=== PATIENT | male | born 1970 | race American Indian/Alaskan Native ===

== ENCOUNTER 2016-08-03 12:25 | Emergency (ER) | payer OTHER ==
[2016-08-03] MEDS ORDERED: MOTRIN PO ONE (16:43)
--- NOTE | 2016-08-03 16:44 | Emergency Department Report ---
ED General Adult HPI - General Chief complaint: Extremity Injury, Lower Stated complaint: LFT KNEE PAIN Source: patient Mode of arrival: Ambulatory Limitations: No Limitations - History of Present Illness Initial comments: 46-year-old male comes in for complaint of left knee pain that gone on for a while he reports he has a history of arthritis of the knee but he feels like the pain is getting worse. He also complains of the rash since all over his body for one month he reports that he's been using cocoa butter without any resolution. The rash is pruritic. In all over. - Related Data Previous Rx's Medication Instructions Recorded Last Taken Type Docusate Sodium [Colace] 100 mg PO BID PRN #60 capsule 02/20/16 Unknown Rx Polyethylene Glycol 3350 [Miralax 17 gm PO QDAY #30 packet 02/20/16 Unknown Rx 3350] methylPREDNISolone [Medrol] 4 mg PO QDAY #21 tab.ds.pk 08/03/16 Unknown Rx Allergies Allergy/AdvReac Type Severity Reaction Status Date / Time No Known Allergies Allergy Verified 10/02/15 08:39 ED Review of Systems ROS: Stated complaint: LFT KNEE PAIN Other details as noted in HPI Constitutional: other (very emaciated). denies: chills, fever Musculoskeletal: arthralgia Skin: rash, pruritus ED Past Medical Hx - Past Medical History Hx Hypertension: No Hx Heart Attack/AMI: No Hx Liver Disease: No Hx Renal Disease: No Hx Headaches / Migraines: Yes Hx Seizures: No Hx Asthma: Yes Hx COPD: No Additional medical history: Hemorrhoids - Surgical History Hx Pacemaker: No Hx Internal Defibrillator: No Additional Surgical History: deepti arthroscopy knee surgery - Social History Smoking Status: Current Every Day Smoker Substance Use Type: Alcohol - Medications Home Medications: Home Medications Medication Instructions Recorded Confirmed Last Taken Type Docusate Sodium [Colace] 100 mg PO BID PRN #60 capsule 02/20/16 Unknown Rx Polyethylene Glycol 3350 [Miralax 17 gm PO QDAY #30 packet 02/20/16 Unknown Rx 3350] methylPREDNISolone [Medrol] 4 mg PO QDAY #21 tab.ds.pk 08/03/16 Unknown Rx ED Physical Exam - General Limitations: No Limitations General appearance: alert, in no apparent distress - Expanded Lower Extremity Exam Left Knee exam: Present: full ROM, pain/laxity with valgus, pain/laxity with varus. Absent: swelling, deformity, crepidus, dislocation, erythema, effusion, posterior draw sign Neuro vascular tendon exam: Present: no vascular compromise Gait: Positive: observed and normal - Skin Skin exam: Present: warm, dry, intact, rash - Expanded Skin Exam Expanded Distribution of rash: generalized, chest, back, RLE, LLE Description of rash: Present: macular. Absent: tenderness, erythematous ED Course Vital Signs 08/03/16 08/03/16 13:23 16:53 Temperature 98.5 F 97.9 F Pulse Rate 87 69 Respiratory 18 12 Rate Blood Pressure 120/68 Blood Pressure 113/90 [Left] O2 Sat by Pulse 100 102 H Oximetry ED Medical Decision Making - Medical Decision Making Patient's been evaluated by this provider in fast track. He has a rash that we need to be evaluated by personnel and payroll technician. Recommended taking Benadryl for the itching using either Vaseline or Eucerin to the skin for moisturize. Left knee pain chronic we will try given the patient in ibuprofen 800 now and will discharge him on ibuprofen for him to follow up with the primary care provider that we referred him to. Critical care attestation.: If time is entered above; I have spent that time in minutes in the direct care of this critically ill patient, excluding procedure time. ED Disposition Clinical Impression: Rash of entire body Disposition: DISCHARGED TO HOME OR SELFCARE Is pt being admited?: No Does the pt Need Aspirin: No Condition: Stable Instructions: Acute Rash (ED), Knee Pain (ED) Additional Instructions: Very importantly to follow up with her primary care provider as well as a personnel and payroll technician. We will also refer you to orthopedics to evaluate her knee again. Prescriptions: methylPREDNISolone [Medrol] 4 mg PO QDAY #21 tab.ds.pk Referrals: PRIMARY CAREMD [Primary Care Provider] - 3-5 Days [facility] [Outside] - 3-5 Days [facility] [Outside] - 3-5 Days ILYA SIMMS MD [Staff Physician] - 3-5 Days ILDA STEWARD MD [Staff Physician] - 3-5 Days Forms: Work/School Release Form(ED)
[2016-08-03 16:54] VITALS: BP 113/90
== END 2016-08-03 18:58 | disposition home or self-care (01) ==
LOC: ED 12:25
DX: R21 Rash and other nonspecific skin eruption (principal); M25.562 Pain in left knee; J45.909 Unspecified asthma, uncomplicated; G43.909 Migraine, unspecified, not intractable, without status migrainosus; F17.200 Nicotine dependence, unspecified, uncomplicated
CPT/HCPCS: 99282

== ENCOUNTER 2017-03-20 09:20 | Emergency (ER) | payer SELFPAY ==
[2017-03-20] MEDS ORDERED: MOTRIN PO ONE (12:17)
[2017-03-20] MEDS ORDERED: NORCO 5/325 PO ONE (12:18)
--- NOTE | 2017-03-20 12:21 | Emergency Department Report ---
ED Back Pain/Injury HPI - General Chief Complaint: Back Pain/Injury Stated Complaint: BACK PAIN Time Seen by Provider: 03/20/17 12:16 Source: patient Limitations: No Limitations - History of Present Illness Initial Comments: 47-year-old male past medical history smoker, arthritis presents with complaint of neck pain rad to arm and left lower back pain radiating down through buttock and into left leg. Denies any falls denies any direct trauma denies dysuria denies hematuria denies abdominal pain denies fever or chills. States it is worse when he changes positions worse when bending over. Moving all 4 extremities. Denies loss of bladder or bowel control. And oriented 3, ambulatory without assistance. MD Complaint: back pain -: Last night Similar Symptoms Previously: Yes Place: home, street Radiation: left leg Severity: moderate Severity scale (0 -10): 6 Quality: sharp Consistency: intermittent Improves With: immobilization Worsens With: movement, walking Context: while lifting, turning/twisting, bending Associated Symptoms: denies other symptoms - Related Data Previous Rx's Medication Instructions Recorded Last Taken Type Docusate Sodium [Colace] 100 mg PO BID PRN #60 capsule 02/20/16 Unknown Rx Polyethylene Glycol 3350 [Miralax 17 gm PO QDAY #30 packet 02/20/16 Unknown Rx 3350] methylPREDNISolone [Medrol] 4 mg PO QDAY #21 tab.ds.pk 08/03/16 Unknown Rx Cyclobenzaprine [Flexeril] 10 mg PO TID PRN #12 tablet 03/20/17 Unknown Rx Naproxen [Naprosyn TAB] 500 mg PO BID PRN #25 tablet 03/20/17 Unknown Rx Allergies Allergy/AdvReac Type Severity Reaction Status Date / Time No Known Allergies Allergy Verified 10/02/15 08:39 ED Review of Systems ROS: Stated complaint: BACK PAIN Other details as noted in HPI Constitutional: denies: chills, fever Eyes: denies: eye pain, eye discharge, vision change ENT: denies: ear pain, throat pain Respiratory: denies: cough, shortness of breath, wheezing Cardiovascular: denies: chest pain, palpitations Endocrine: no symptoms reported Gastrointestinal: denies: abdominal pain, nausea, diarrhea Genitourinary: denies: urgency, dysuria Musculoskeletal: as per HPI, back pain. denies: joint swelling, arthralgia Skin: denies: rash, lesions Neurological: denies: headache, weakness, paresthesias Psychiatric: denies: anxiety, depression Hematological/Lymphatic: denies: easy bleeding, easy bruising ED Past Medical Hx - Past Medical History Previous Medical History?: Yes Hx Hypertension: No Hx Heart Attack/AMI: No Hx Liver Disease: No Hx Renal Disease: No Hx Headaches / Migraines: Yes Hx Seizures: No Hx Asthma: Yes Hx COPD: No Additional medical history: Hemorrhoids - Surgical History Hx Pacemaker: No Hx Internal Defibrillator: No Additional Surgical History: deepti arthroscopy knee surgery - Social History Smoking Status: Current Every Day Smoker Substance Use Type: Alcohol - Medications Home Medications: Home Medications Medication Instructions Recorded Confirmed Last Taken Type Docusate Sodium [Colace] 100 mg PO BID PRN #60 capsule 02/20/16 Unknown Rx Polyethylene Glycol 3350 [Miralax 17 gm PO QDAY #30 packet 02/20/16 Unknown Rx 3350] methylPREDNISolone [Medrol] 4 mg PO QDAY #21 tab.ds.pk 08/03/16 Unknown Rx Cyclobenzaprine [Flexeril] 10 mg PO TID PRN #12 tablet 03/20/17 Unknown Rx Naproxen [Naprosyn TAB] 500 mg PO BID PRN #25 tablet 03/20/17 Unknown Rx ED Physical Exam - General Limitations: No Limitations General appearance: alert, in no apparent distress - Head Head exam: Present: atraumatic, normocephalic - Eye Eye exam: Present: normal appearance, PERRL, EOMI - ENT ENT exam: Present: mucous membranes moist - Neck Neck exam: Present: normal inspection, full ROM (neck flexion and extension intact, lateral rotation, lateral flexion) - Respiratory Respiratory exam: Present: normal lung sounds bilaterally. Absent: respiratory distress - Cardiovascular Cardiovascular Exam: Present: regular rate, normal rhythm. Absent: systolic murmur, diastolic murmur, rubs, gallop - GI/Abdominal GI/Abdominal exam: Present: soft, normal bowel sounds - Rectal Rectal exam: Present: deferred - Extremities Exam Extremities exam: Present: normal inspection - Back Exam Back exam: Present: normal inspection - Expanded Back Exam Expanded Back exam: Present: normal rectal tone Back exam: Sciatic Notch Tenderness: Left, Positive Straight Leg Raise: Left ( at 20 degrees left leg on SLR test) - Neurological Exam Neurological exam: Present: alert, oriented X3, CN II-XII intact, normal gait - Psychiatric Psychiatric exam: Present: normal affect, normal mood - Skin Skin exam: Present: warm, dry, intact, normal color. Absent: rash ED Course Vital Signs 03/20/17 03/20/17 03/20/17 09:26 12:26 14:06 Temperature 98 F 99.2 F Pulse Rate 83 68 Respiratory 16 16 18 Rate Blood Pressure 114/84 Blood Pressure 139/86 [Left] O2 Sat by Pulse 100 100 Oximetry ED Medical Decision Making - Medical Decision Making a/p: Sciatica, lower back pain, chronic radiculopathy 1- will provide symptomatic relief with trial of NSAIDS 2- will refer to PMD as pt does not have one and to ortho for f/u and outpt imaging, none needed at this time since pain is atraumatic, no neurovascular deficits on PE, no saddle paraesthesias, no bladder overflow, no bowel incontience, no clinical signs of cauda equina syndrome. Pt denies any fever, chill, dysruia or IV drug use. Pain likely from chronic degenerative spinal disease. 3- xray shows Critical care attestation.: If time is entered above; I have spent that time in minutes in the direct care of this critically ill patient, excluding procedure time. ED Disposition Clinical Impression: Sciatica of left side, Chronic neck pain Disposition: TO HOME OR SELFCARE Is pt being admited?: No Does the pt Need Aspirin: No Condition: Stable Instructions: Sciatica (ED), Piriformis Syndrome (ED) Prescriptions: Cyclobenzaprine [Flexeril] 10 mg PO TID PRN #12 tablet PRN Reason: Muscle Spasm Naproxen [Naprosyn TAB] 500 mg PO BID PRN #25 tablet PRN Reason: Pain Referrals: SANDIP COLLINS MD [Staff Physician] - 3-5 Days HARPAL SAINI MD [Staff Physician] - 3-5 Days [facility] [Provider Group] - 3-[address] [facility] [Provider Group] - 3-5 Days Forms: Work/School Release Form(ED) Time of Disposition: 13:49
--- NOTE | 2017-03-20 14:00 | XRay Report ---
CERVICAL SPINE SERIES THREE VIEWS: 03/20/17 09:20:00 CLINICAL: Pain. FINDINGS: Normal vertebral body alignment through T2. Moderate degenerative change at C5-6 and C6-7 with decreased height and increased density of the C5 vertebral bodies. Anterior osteophytes at C5-6 and C6-7 with larger osteophytes at C6-7. Vacuum disc phenomenon at C6-7. Mild facet joint sclerosis at C7-T1. The rest of the facet joints are normal. Normal odontoid and C1. Normal airway and soft tissues. IMPRESSION: Moderate degenerative change at C5-6 and C6-7.
[2017-03-20 14:07] VITALS: BP 139/86
== END 2017-03-20 14:06 | disposition home or self-care (01) ==
LOC: ED 09:20
DX: M54.32 Sciatica, left side (principal); M54.2 Cervicalgia; G89.29 Other chronic pain; G43.909 Migraine, unspecified, not intractable, without status migrainosus; J45.909 Unspecified asthma, uncomplicated; F17.200 Nicotine dependence, unspecified, uncomplicated
CPT/HCPCS: 72040

== ENCOUNTER 2017-08-12 11:20 | Inpatient (IN) | payer SELFPAY ==
[2017-08-12 12:31] LABS: Eosinophils % (Auto) TNR % (0.0-4.3); Monocytes % (Auto) TNR % (0.0-7.3)
[2017-08-12 12:32] LABS: Basophils # (Auto) TNR K/mm3 (0.0-0.1); Basophils % (Auto) TNR % (0.0-1.8); Eosinophils # (Auto) TNR K/mm3 (0.0-0.4); Hematocrit TNR % (35.5-45.6); Hemoglobin TNR gm/dl (11.8-15.2); Lymphocytes # (Auto) TNR K/mm3 (1.2-5.4); Lymphocytes % (Auto) TNR % (13.4-35.0); Mean Corpuscular HGB Conc TNR % (32-34); Mean Corpuscular Hemoglobin TNR pg (28-32); Mean Corpuscular Volume TNR fl (84-94); Mean Platelet Volume TNR fl (6-12); Monocytes # (Auto) TNR K/mm3 (0.0-0.8); Platelet Count TNR K/mm3 (140-440); Red Blood Count TNR M/mm3 (3.65-5.03); Red Cell Distribution Width TNR % (13.2-15.2)
[2017-08-12 12:33] LABS: INR 1.25 (0.87-1.13)
[2017-08-12 12:43] LABS: BUN/Creatinine Ratio 14; Blood Urea Nitrogen 13 mg/dL (9-20); Calcium 8.4 mg/dL (8.4-10.2); Hemolysis Index 0
--- NOTE | 2017-08-12 12:45 | Emergency Department Report ---
HPI - General Chief Complaint: Arrhythmia/Palpitations Time Seen by Provider: 08/12/17 12:08 - HPI HPI: This is a 47 year-old male presents to the emergency department by EMS from work with a complaint of a fast heart rate and palpitations. Patient started feeling dizzy and seeing spots just as he noticed his heart was racing. He also started feeling some left shoulder pain and paresthesias and/or tingling in the left hand. EMS was called and the patient was found to have a heart rate of 165. Apparently he converted back down to 88 and then back up to 130 while in route. There is an EKG that appears consistent with sinus tachycardia at 144 bpm from EMS. At the current time the patient's heart rate is within the normal range and all of his previous symptoms have resolved. He said that this occurred to him one time prior about a week ago. He has a history of asthma, internal hemorrhoids and migraine headaches. He does not have a primary care doctor. He is a tobacco smoker but denies any illicit drug use or alcohol abuse. ED Past Medical Hx - Past Medical History Hx Hypertension: No Hx Heart Attack/AMI: No Hx Liver Disease: No Hx Renal Disease: No Hx Headaches / Migraines: Yes Hx Seizures: No Hx Asthma: Yes Hx COPD: No Additional medical history: Hemorrhoids - Surgical History Hx Pacemaker: No Hx Internal Defibrillator: No Additional Surgical History: deepti arthroscopy knee surgery - Social History Smoking Status: Current Every Day Smoker Substance Use Type: None - Medications Home Medications: Home Medications Medication Instructions Recorded Confirmed Last Taken Type No Known Home Medications [No 08/12/17 08/12/17 Unknown History Reported Home Medications] ED Review of Systems ROS: Stated complaint: SVT Other details as noted in HPI Comment: All other systems reviewed and negative Constitutional: denies: chills, fever Eyes: denies: eye pain, eye discharge, vision change Respiratory: denies: cough, shortness of breath, wheezing Cardiovascular: palpitations. denies: chest pain Gastrointestinal: denies: abdominal pain, nausea, diarrhea Genitourinary: denies: urgency, dysuria Musculoskeletal: arthralgia. denies: back pain Skin: denies: rash, lesions Neurological: paresthesias. denies: headache, numbness Physical Exam - Physical Exam Vital Signs: Vital Signs 08/12/17 08/12/17 08/12/17 11:48 11:56 12:33 Temperature 98.1 F 98.1 F Pulse Rate 75 75 Respiratory 20 20 Rate Blood Pressure 128/75 O2 Sat by Pulse 100 100 100 Oximetry Physical Exam: GENERAL: The patient is well-developed well-nourished. HENT: Normocephalic. Atraumatic. Patient has moist mucous membranes. EYES: Extraocular motions are intact. Pupils equal reactive to light bilaterally. NECK: Supple. Trachea is midline. CHEST/LUNGS: Clear to auscultation. There is no respiratory distress noted. HEART/CARDIOVASCULAR: Regular. There is no tachycardia. There is no murmur. ABDOMEN: Abdomen is soft, nontender. Patient has normal bowel sounds. There is no abdominal distention. SKIN: Skin is warm and dry. NEURO: The patient is awake, alert, and oriented. The patient is cooperative. The patient has no focal neurologic deficits. The patient has normal speech. MUSCULOSKELETAL: There is no tenderness or deformity. There is no limitation range of motion. There is no evidence of acute injury. RECTAL: No hemorrhoids or lesions seen externally. No gross blood. Stool negative for guaiac testing at this time. ED Course Vital Signs 08/12/17 08/12/17 08/12/17 11:48 11:56 12:33 Temperature 98.1 F 98.1 F Pulse Rate 75 75 Respiratory 20 20 Rate Blood Pressure 128/75 O2 Sat by Pulse 100 100 100 Oximetry ED Medical Decision Making - Lab Data Result diagrams: 08/12/17 12:41 08/12/17 12:07 - EKG Data -: EKG Interpreted by Dc EKG shows normal: sinus rhythm, axis (left axis deviation), intervals, QRS complexes (left anterior fascicular block and incomplete right bundle branch block, Q waves to the septal leads), ST-T waves Rate: normal - EKG Data When compared to previous EKG there are: no significant change Interpretation: unchanged when compared t (02/2016) - Radiology Data Radiology results: image reviewed interpreted by me: Chest x-ray does not show any acute process. There are no pleural effusions, obvious pneumonia and there is no pneumothorax. - Medical Decision Making Patient presents with some transient tachycardia episodes as well as some symptoms of palpitations, paresthesias of the hand and dizziness. It appears to be secondary to his extreme microcytic anemia causing symptomatic anemia. His vital signs were stable throughout ED course thus far. A type and screen has been drawn and the patient will have 3 units of packed red blood cells to start and will be admitted to the hospital for further evaluation and treatment. He has been accepted for admission by the hospitalist, Dr. Colón. - Differential Diagnosis GI bleed, iron deficiency, symptomatic anemia, SVT, [place] Critical Care Time: No Critical care attestation.: If time is entered above; I have spent that time in minutes in the direct care of this critically ill patient, excluding procedure time. ED Disposition Clinical Impression: Symptomatic anemia, Iron deficiency, Palpitations Disposition: OP ADMIT IP TO THIS HOSP Is pt being admited?: Yes Condition: Stable Time of Disposition: 14:01
[2017-08-12 13:04] LABS: Red Blood Count 2.75 M/mm3 (3.65-5.03)
[2017-08-12 13:11] LABS: Mean Corpuscular HGB Conc 26 % (32-34); Mean Corpuscular Hemoglobin 12 pg (28-32); Red Cell Distribution Width 24.4 % (13.2-15.2)
[2017-08-12 13:12] LABS: Platelet Count 136 K/mm3 (140-440)
[2017-08-12 13:13] LABS: Hematocrit 13.2 % (35.5-45.6); Hemoglobin 3.4 gm/dl (11.8-15.2)
[2017-08-12] MEDS ORDERED: NACL 0.9% 500 ML 500 ML IV ONE (13:27)
[2017-08-12 13:43] LABS: Anisocytosis 2+; Band Neutrophils # (Manual) 0.1 K/mm3; Basophils % (Manual) 0 % (0.0-1.8); Eosinophils % (Manual) 0 % (0.0-4.3); Hypochromasia 3+; Total Cells Counted 100
[2017-08-12 13:44] LABS: Mean Corpuscular Volume < 50 fl (84-94); Platelet Estimate Consistent w Auto; Schistocytes 1+
--- NOTE | 2017-08-12 14:24 | XRay Report ---
PA and lateral chest: Palpitations. The lungs are clear and well inflated. No hilar or mediastinal adenopathy identified. Normal heart size and no vascular congestion. Healed fractured ribs in lateral left mid chest. No interval change when compared to prior exam in February 2016. Impression: No acute finding.
[2017-08-12] MEDS ORDERED: NACL 0.9% 500 ML 500 ML ONE (16:05)
--- NOTE | 2017-08-12 22:53 | Event Note ---
Date: 08/12/17 See dictated H/p in reports Acute Blood loss anemia Int Hemorrhoids
[2017-08-13] MEDS ORDERED: ZOFRAN IV PRN (01:33)
[2017-08-13] MEDS ORDERED: PERCOCET 5/325 PO PRN (01:33)
[2017-08-13] MEDS ORDERED: MORPHINE IV PRN (01:33)
[2017-08-13] MEDS ORDERED: DULCOLAX PR PRN (01:33)
[2017-08-13] MEDS ORDERED: MILK OF MAGNESIA PO PRN (01:33)
[2017-08-13] MEDS ORDERED: PEPCID IV SCH (02:00)
[2017-08-13] MEDS: PROTONIX IV SCH ×3 (02:17→22:09)
[2017-08-13 02:44] LABS: Hematocrit 21.1 % (35.5-45.6); Hemoglobin 6.1 gm/dl (11.8-15.2); Mean Corpuscular HGB Conc 29 % (32-34); Red Blood Count 3.54 M/mm3 (3.65-5.03)
[2017-08-13 02:53] LABS: Mean Corpuscular Hemoglobin 17 pg (28-32); Mean Corpuscular Volume 60 fl (84-94); Platelet Count 113 K/mm3 (140-440)
[2017-08-13 02:55] LABS: Red Cell Distribution Width > 40.0 % (13.2-15.2)
[2017-08-13 03:12] LABS: Alanine Aminotransferase 7 units/L (7-56); Albumin 3.6 g/dL (3.9-5); BUN/Creatinine Ratio 13; Blood Urea Nitrogen 9 mg/dL (9-20); Hemolysis Index 0
--- NOTE | 2017-08-13 03:58 | History and Physical Report ---
CHIEF COMPLAINT: Lower GI bleed secondary to hemorrhoids for 1 week. HISTORY OF PRESENT ILLNESS: A 47-year-old -Iranian male with a history of asthma, migraine headaches and internal hemorrhoids, comes in for rectal bleed for 1 week, off and on, moderate amount of bleeding. Also the patient has been feeling tired and weak, having palpitations. No fevers or chills. ( ) shortness of breath present. Also palpitations present. Otherwise, normal. PAST MEDICAL HISTORY: Significant for stents, history of bilateral arthroscopic knee surgery. SOCIAL HISTORY: Smokes about half a pack a day. FAMILY HISTORY: Significant for ( ). REVIEW OF SYSTEMS: ( ). CARDIOVASCULAR AND RESPIRATORY: Some shortness of breath present. No weakness, no wheezing. No chest pain. GI: No nausea, no vomiting. Rectal bleeding present. Off and on for last 1 week, copious amount. GENITOURINARY: No dysuria, no ( ) flank pain, frequency. SKIN: No rashes. CENTRAL NERVOUS SYSTEM: No syncope or seizures. PHYSICAL EXAMINATION: VITAL SIGNS: Temperature 98.1, pulse 75, blood pressure 128/75. HEENT: Unremarkable. Pupils equal and reactive. Posterior pharynx is normal. NECK: Supple, no lymphadenopathy, no thyromegaly. LUNGS: Clear to auscultation and percussion. CARDIOVASCULAR: S1, S2 heard. Apical impulse in the left fifth intercostal space and midclavicular line. ABDOMEN: Soft and benign. RECTAL: Positive for michaela blood in the ( ) EXTREMITIES: Good pedal pulses. LABORATORY DATA: Significant for ( ) and hematocrit of 13.2, white blood cells 3.7. Electrolytes are normal. INR is 1.25. Chest x-ray, no acute findings. ASSESSMENT AND PLAN: 1. Acute blood loss anemia. The patient to be transfused 3 units. 2. Gastritis. Continue Protonix. 3. Internal hemorrhoids. The patient to get GI consult and get colonoscopy again. The patient was told by ( ) that he has internal hemorrhoids that ( ). 4. DVT prophylaxis, only SCDs. JOB# [id number] NATE/GARY
[2017-08-13 06:06] LABS: Anisocytosis 3+; Band Neutrophils # (Manual) 0.1 K/mm3; Basophils % (Manual) 0 % (0.0-1.8); Total Cells Counted 100
[2017-08-13 06:07] LABS: Hypochromasia 3+; Schistocytes Few
[2017-08-13 06:08] LABS: Platelet Estimate Consistent w Auto
--- NOTE | 2017-08-13 09:11 | Progress Note ---
Assessment and Plan Assessment and plan: 47 Year old male admitted symptomatic anemia via EMS, found in the ED to have a hgb of 3. Patient also was noted to be complaining of palpitations and rapid HR , dizziness and parasthesia on the left side enroute to the hospital with top hr at 165. Sinus tachycardia per documentation. On discussion with the patient. He takes Tylenol dose chronically for more than a month now Symptomatic with profound Severe Anemia GI bleed ?Hemorroidal Pancytopenia(Anemia, thrombocytopenia, leukopenia) Sinus Tachycardia Hypercoagulable state Tobacco use disorder Plan * Continue supportive care * S/P 3 UNITS PRBC, Monitor H/H * Transfuse PRN * 15 MINS TOBACCO CESSATION COUNSELLING * Avoid Anticoagulation medications * Nicotin patch if needed. * Discussed with patient the need to treat tobacco and also creates Goody powder use. 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 * PPI BID History Interval history: Patient Seen and examined this morning in no acute distress. Reports that he was lost to follow-up due to insurance reasons. Any alcohol use. No other adverse events reported by nursing staff no other michaela bleeding noted. He reports last blood in stool was about a month ago Hospitalist Physical - Physical exam Narrative exam: VITAL SIGNS: Reviewed. GENERAL: The patient appeared well nourished and normally developed. Vital signs as documented. HEAD: No signs of head trauma. EYES: Pupils are equal. Extraocular motions intact. EARS: Hearing grossly intact. MOUTH: Oropharynx is normal. NECK: No adenopathy, no JVD. CHEST: Chest with clear breath sounds bilaterally. No wheezes, rales, or rhonchi. CARDIAC: Regular rate and rhythm. S1 and S2, without murmurs, gallops, or rubs. VASCULAR: No Edema. Peripheral pulses normal and equal in all extremities. ABDOMEN: Soft, without detectable tenderness. No sign of distention. No rebound or guarding, and no masses palpated. Bowel Sounds normal. MUSCULOSKELETAL: Good range of motion of all major joints. Extremities without clubbing, cyanosis or edema. NEUROLOGIC EXAM: Alert and oriented x 3. No focal sensory or strength deficits. Speech normal. Follows commands. PSYCHIATRIC: Mood normal. SKIN: No rash or lesions. - Constitutional Vitals: Temp Pulse Resp BP Pulse Ox 99.0 F 72 18 134/85 98 08/13/17 07:49 08/13/17 07:49 08/13/17 07:49 08/13/17 07:49 08/13/17 07:49 Results - Labs CBC & Chem 7: 08/13/17 10:51 08/13/17 02:03 Labs: Laboratory Last Values WBC 3.3 K/mm3 (4.5-11.0) L 08/13/17 02:03 RBC 3.54 M/mm3 (3.65-5.03) L 08/13/17 02:03 Hgb 6.1 gm/dl (11.8-15.2) L 08/13/17 02:03 Hct 21.1 % (35.5-45.6) L D 08/13/17 02:03 MCV 60 fl (84-94) L 08/13/17 02:03 MCH 17 pg (28-32) L 08/13/17 02:03 MCHC 29 % (32-34) L 08/13/17 02:03 RDW > 40.0 % (13.2-15.2) H 08/13/17 02:03 Plt Count 113 K/mm3 (140-440) L 08/13/17 02:03 Lymph % (Auto) TNR 08/12/17 12:11 Placer % (Auto) TNR 08/12/17 12:11 Eos % (Auto) TNR 08/12/17 12:11 Baso % (Auto) TNR 08/12/17 12:11 Lymph # TNR 08/12/17 12:11 Placer # TNR 08/12/17 12:11 Eos # TNR 08/12/17 12:11 Baso # TNR 08/12/17 12:11 Add Manual Diff Complete 08/13/17 02:03 Total Counted 100 08/13/17 02:03 Seg Neutrophils % TNR 08/12/17 12:11 Seg Neuts % (Manual) 59.0 % (40.0-70.0) 08/13/17 02:03 Band Neutrophils % 4.0 % 08/13/17 02:03 Lymphocytes % (Manual) 24.0 % (13.4-35.0) 08/13/17 02:03 Reactive Lymphs % (Man) 0 % 08/13/17 02:03 Monocytes % (Manual) 10.0 % (0.0-7.3) H 08/13/17 02:03 Eosinophils % (Manual) 3.0 % (0.0-4.3) 08/13/17 02:03 Basophils % (Manual) 0 % (0.0-1.8) 08/13/17 02:03 Metamyelocytes % 0 % 08/13/17 02:03 Myelocytes % 0 % 08/13/17 02:03 Promyelocytes % 0 % 08/13/17 02:03 Blast Cells % 0 % 08/13/17 02:03 Nucleated RBC % 3.0 % (0.0-0.9) H 08/13/17 02:03 Seg Neutrophils # TNR 08/12/17 12:11 Seg Neutrophils # Man 1.9 K/mm3 (1.8-7.7) 08/13/17 02:03 Band Neutrophils # 0.1 K/mm3 08/13/17 02:03 Lymphocytes # (Manual) 0.8 K/mm3 (1.2-5.4) L 08/13/17 02:03 Abs React Lymphs (Man) 0.0 K/mm3 08/13/17 02:03 Monocytes # (Manual) 0.3 K/mm3 (0.0-0.8) 08/13/17 02:03 Eosinophils # (Manual) 0.1 K/mm3 (0.0-0.4) 08/13/17 02:03 Basophils # (Manual) 0.0 K/mm3 (0.0-0.1) 08/13/17 02:03 Metamyelocytes # 0.0 K/mm3 08/13/17 02:03 Myelocytes # 0.0 K/mm3 08/13/17 02:03 Promyelocytes # 0.0 K/mm3 08/13/17 02:03 Blast Cells # 0.0 K/mm3 08/13/17 02:03 WBC Morphology Not Reportable 08/13/17 02:03 Hypersegmented Neuts Not Reportable 08/13/17 02:03 Hyposegmented Neuts Not Reportable 08/13/17 02:03 Hypogranular Neuts Not Reportable 08/13/17 02:03 Smudge Cells Not Reportable 08/13/17 02:03 Toxic Granulation Not Reportable 08/13/17 02:03 Toxic Vacuolation Not Reportable 08/13/17 02:03 Dohle Bodies Not Reportable 08/13/17 02:03 Pelger-Huet Anomaly Not Reportable 08/13/17 02:03 Neelima Rods Not Reportable 08/13/17 02:03 Platelet Estimate Consistent w auto 08/13/17 02:03 Clumped Platelets Not Reportable 08/13/17 02:03 Plt Clumps, EDTA Not Reportable 08/13/17 02:03 Large Platelets Not Reportable 08/13/17 02:03 Giant Platelets Not Reportable 08/13/17 02:03 Platelet Satelliting Not Reportable 08/13/17 02:03 Plt Morphology Comment Not Reportable 08/13/17 02:03 RBC Morphology Not Reportable 08/13/17 02:03 Dimorphic RBCs Not Reportable 08/13/17 02:03 Polychromasia Rare 08/13/17 02:03 Hypochromasia 3+ 08/13/17 02:03 Poikilocytosis Not Reportable 08/13/17 02:03 Anisocytosis 3+ 08/13/17 02:03 Microcytosis 2+ 08/13/17 02:03 Macrocytosis Not Reportable 08/13/17 02:03 Spherocytes Not Reportable 08/13/17 02:03 Pappenheimer Bodies Not Reportable 08/13/17 02:03 Sickle Cells Not Reportable 08/13/17 02:03 Target Cells Not Reportable 08/13/17 02:03 Tear Drop Cells Not Reportable 08/13/17 02:03 Ovalocytes Not Reportable 08/13/17 02:03 Helmet Cells Not Reportable 08/13/17 02:03 [place] Bodies Not Reportable 08/13/17 02:03 [place] Rings Not Reportable 08/13/17 02:03 Pascale Cells Not Reportable 08/13/17 02:03 Bite Cells Not Reportable 08/13/17 02:03 Crenated Cell Not Reportable 08/13/17 02:03 Elliptocytes Not Reportable 08/13/17 02:03 Acanthocytes (Spur) Not Reportable 08/13/17 02:03 Rouleaux Not Reportable 08/13/17 02:03 Hemoglobin C Crystals Not Reportable 08/13/17 02:03 Schistocytes Few 08/13/17 02:03 Malaria parasites Not Reportable 08/13/17 02:03 Carlos Bodies Not Reportable 08/13/17 02:03 Hem Pathologist Commnt No 08/13/17 02:03 PT 16.4 Sec. (12.2-14.9) H 08/12/17 12:12 INR 1.25 (0.87-1.13) H 08/12/17 12:12 APTT 36.0 Sec. (24.2-36.6) 08/12/17 12:12 Sodium 142 mmol/L (137-145) 08/13/17 02:03 Potassium 4.1 mmol/L (3.6-5.0) 08/13/17 02:03 Chloride 107.1 mmol/L (98-107) H 08/13/17 02:03 Carbon Dioxide 24 mmol/L (22-30) 08/13/17 02:03 Anion Gap 15 mmol/L 08/13/17 02:03 BUN 9 mg/dL (9-20) 08/13/17 02:03 Creatinine 0.7 mg/dL (0.8-1.5) L 08/13/17 02:03 Estimated GFR > 60 ml/min 08/13/17 02:03 BUN/Creatinine Ratio 13 % 08/13/17 02:03 Glucose 100 mg/dL (75-100) 08/13/17 02:03 Calcium 8.0 mg/dL (8.4-10.2) L 08/13/17 02:03 Total Bilirubin 0.40 mg/dL (0.1-1.2) 08/13/17 02:03 AST 11 units/L (5-40) 08/13/17 02:03 ALT 7 units/L (7-56) 08/13/17 02:03 Alkaline Phosphatase 77 units/L (35-129) 08/13/17 02:03 Troponin T < 0.010 ng/mL (0.00-0.029) 08/12/17 18:38 Total Protein 6.9 g/dL (6.3-8.2) 08/13/17 02:03 Albumin 3.6 g/dL (3.9-5) L 08/13/17 02:03 Albumin/Globulin Ratio 1.1 % 08/13/17 02:03 Blood Type O POSITIVE 08/12/17 13:31 Antibody Screen Negative 08/12/17 13:31 Crossmatch See Detail 08/12/17 13:31 - Imaging and Cardiology Chest x-ray: image reviewed (no acute pathology)
[2017-08-13] MEDS: TYLENOL PO PRN ×2 (09:23→15:09)
[2017-08-13 11:37] LABS: Hematocrit 20.8 % (35.5-45.6); Hemoglobin 5.8 gm/dl (11.8-15.2)
[2017-08-13] MEDS ORDERED: NACL 0.9% 500 ML 500 ML IV SCH (11:40)
--- NOTE | 2017-08-13 13:01 | Consultation ---
History of Present Illness - Reason for Consult Consult date: 08/13/17 Anemia Requesting physician: ANUJA WAGGONER - History of Present Illness Gallo Mercedes is a 47-year-old man admitted with profound anemia with a hemoglobin of 3.4. We are consulted for evaluation. He is markedly microcytic as well. Patient has a history of anemia for more than 3 years. He was evaluated in February 2016 and underwent colonoscopy with internal hemorrhoidal banding on February 19, as well as an upper endoscopy on 02/18/17. At that time, he had a hemoglobin of 5.5, and profound iron deficiency with a ferritin of 3.5. Patient did not follow-up afterwards due to lack of insurance. He notes that even 2 years prior to that admission, he had been anemic and evaluated in [facility]. Patient states that his anemia has been attributed to hemorrhoidal bleeding. Patient notes that he has hematochezia occurring approximately twice a week though he has not seen any bleeding in the last 1-1/2 months. His bowel movements have been regular on a once a day basis and light green or brown. He denies abdominal pain nausea or vomiting. Over the last month, he has been having intermittent dyspnea on exertion and on the day prior to admission he became much weaker and sick or and therefore presented to the emergency room. Patient has arthritis and takes Goody powders twice a day for the last month. He used to take him in the past but states he quit until a month ago. He denies weight loss fevers chills sweats nausea or vomiting. He states he quit drinking alcohol one year ago. 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 denies: smoking, alcohol abuse Medications and Allergies Allergies Allergy/AdvReac Type Severity Reaction Status Date / Time No Known Allergies Allergy Verified 10/02/15 08:39 Home Medications Medication Instructions Recorded Confirmed Last Taken Type No Known Home Medications [No 08/12/17 08/12/17 Unknown History Reported Home Medications] Active Meds: Active Medications Acetaminophen (Tylenol) 650 mg PO Q4H PRN PRN Reason: Pain MILD(1-3)/Fever >100.5/MCKEON Last Admin: 08/13/17 09:23 Dose: 650 mg Bisacodyl (Dulcolax) 10 mg MN QDAY PRN PRN Reason: Constipation unrelieved by MOM Sodium Chloride (Nacl 0.9% 500 Ml) 500 mls @ 0 mls/hr IV ONCE GLORIA PRN Reason: As Directed Stop: 08/13/17 23:00 Magnesium Hydroxide (Milk Of Magnesia) 30 ml PO Q4H PRN PRN Reason: Constipation Morphine Sulfate (Morphine) 2 mg IV Q4H PRN PRN Reason: Pain, Moderate (4-6) Ondansetron HCl (Zofran) 4 mg IV Q8H PRN PRN Reason: N/V unrelieved by Reglan Oxycodone/Acetaminophen (Percocet 5/325) 1 tab PO Q6H PRN PRN Reason: Pain, Moderate (4-6) Pantoprazole Sodium (Protonix) 40 mg IV BID GLORIA Last Admin: 08/13/17 09:24 Dose: 40 mg Review of Systems All systems: negative (as noted above) Exam - Constitutional Vitals: Temp Pulse Resp BP Pulse Ox 99.0 F 72 18 134/85 98 08/13/17 07:49 08/13/17 07:49 08/13/17 09:23 08/13/17 07:49 08/13/17 07:49 General appearance: Present: no acute distress - EENT Eyes: Present: PERRL, EOM intact ENT: hearing intact - Neck Neck: Present: supple - Respiratory Respiratory effort: normal Respiratory: bilateral: CTA - Cardiovascular Rhythm: regular Heart Sounds: Present: S1 & S2 - Extremities Extremities: No edema - Abdominal General gastrointestinal: Present: soft, non-tender, normal bowel sounds - Rectal Rectal Exam: other (No blood and Heme negative, per ER) Results - Labs CBC & Chem 7: 08/13/17 10:51 08/13/17 02:03 Labs: Abnormal lab results 08/12/17 08/12/17 08/13/17 Range/Units 12:41 13:31 02:03 WBC 3.7 L 3.3 L (4.5-11.0) K/mm3 RBC 2.75 L 3.54 L (3.65-5.03) M/mm3 Hgb 3.4 L* 6.1 L (11.8-15.2) gm/dl Hct 13.2 L* 21.1 L D (35.5-45.6) % MCV < 50 L 60 L (84-94) fl MCH 12 L 17 L (28-32) pg MCHC 26 L 29 L (32-34) % RDW 24.4 H > 40.0 H (13.2-15.2) % Plt Count 136 L 113 L (140-440) K/mm3 Monocytes % (Manual) 8.0 H 10.0 H (0.0-7.3) % Nucleated RBC % 3.0 H (0.0-0.9) % Lymphocytes # (Manual) 0.8 L 0.8 L (1.2-5.4) K/mm3 Chloride (98-107) mmol/L Creatinine (0.8-1.5) mg/dL Calcium (8.4-10.2) mg/dL Albumin (3.9-5) g/dL Crossmatch See Detail 08/13/17 08/13/17 Range/Units 02:03 10:51 WBC (4.5-11.0) K/mm3 RBC (3.65-5.03) M/mm3 Hgb 5.8 L* (11.8-15.2) gm/dl Hct 20.8 L (35.5-45.6) % MCV (84-94) fl MCH (28-32) pg MCHC (32-34) % RDW (13.2-15.2) % Plt Count (140-440) K/mm3 Monocytes % (Manual) (0.0-7.3) % Nucleated RBC % (0.0-0.9) % Lymphocytes # (Manual) (1.2-5.4) K/mm3 Chloride 107.1 H (98-107) mmol/L Creatinine 0.7 L (0.8-1.5) mg/dL Calcium 8.0 L (8.4-10.2) mg/dL Albumin 3.6 L (3.9-5) g/dL Crossmatch Assessment and Plan 1. Profound anemiamost likely iron deficiency. Probably related to chronic blood loss. Patient describes hemorrhoidal bleeding but has not had any recently. He also has likely been on goodies powders chronically and more than a month that he describes. Small bowel etiology should be considered as well as the hemorrhoidal bleeding and possible peptic ulcer disease. However, there is no acute blood loss going on at this point in time. Plan 1. Agree with transfusion 2. Empiric PPI 3. We will do lower GI endoscopy and banding. 4. Patient advised to stop goodies. 5. Patient needs to be on chronic oral iron supplementation and monitor H&H 6. If fails to respond, we will need upper endoscopy and PillCam as outpatient
[2017-08-13] MEDS ORDERED: GOLYTELY PO ONE (18:00)
[2017-08-14 00:56] LABS: Hematocrit 26.6 % (35.5-45.6); Hemoglobin 7.9 gm/dl (11.8-15.2)
[2017-08-14] MEDS ORDERED: ROBITUSSIN PO PRN (05:30)
[2017-08-14 06:10] LABS: Hematocrit 26.5 % (35.5-45.6)
[2017-08-14 06:25] LABS: Eosinophils % (Auto) 2.5 % (0.0-4.3); Hemoglobin 7.9 gm/dl (11.8-15.2); Mean Corpuscular HGB Conc 30 % (32-34); Monocytes % (Auto) 8.2 % (0.0-7.3); Red Blood Count 4.05 M/mm3 (3.65-5.03)
[2017-08-14 06:27] LABS: Mean Corpuscular Hemoglobin 20 pg (28-32); Mean Corpuscular Volume 66 fl (84-94)
[2017-08-14 06:28] LABS: Platelet Count 105 K/mm3 (140-440); Red Cell Distribution Width > 40.0 % (13.2-15.2)
[2017-08-14 06:33] LABS: Alanine Aminotransferase 6 units/L (7-56); Albumin 3.4 g/dL (3.9-5); BUN/Creatinine Ratio 12; Blood Urea Nitrogen 7 mg/dL (9-20); Calcium 8.2 mg/dL (8.4-10.2); Hemolysis Index 0
[2017-08-14 07:46] LABS: Total Cells Counted 100
[2017-08-14 07:47] LABS: Acanthocytes 1+; Anisocytosis 2+; Hypochromasia 2+; Macrocytosis 1+; Poikilocytosis 1+
[2017-08-14 07:48] LABS: Ovalocytes 1+; Schistocytes Few; Tear Drop Cells Few
[2017-08-14 07:49] LABS: Platelet Estimate Consistent w Auto
[2017-08-14] MEDS ORDERED: NACL 0.9% 1000 ML 1,000 ML ONE (08:01)
[2017-08-14] MEDS ORDERED: WATER FOR IRRIG STERILE IR ONE (08:58)
[2017-08-14] MEDS ORDERED: WATER FOR IRRIG STERILE ONE (08:59)
--- NOTE | 2017-08-14 09:10 | Anesthesia Day of Surgery ---
Anesthesia Day of Surgery - Day of Surgery Patient Examined: Yes Patient H&P Reviewed: Yes Patient is NPO: Yes
--- NOTE | 2017-08-14 09:10 | Anesthesia Consultation ---
Anesthesia Consult and Med Hx Date of service: 08/14/17 - Airway Anesthetic Teeth Evaluation: Good ROM Head & Neck: Adequate Mental/Hyoid Distance: Adequate Mallampati Class: Class I Intubation Access Assessment: Good - Pulmonary Exam CTA: Yes - Cardiac Exam Cardiac Exam: RRR - Pre-Operative Health Status ASA Pre-Surgery Classification: ASA2 Proposed Anesthetic Plan: MAC - Pulmonary Hx Smoking: Yes (1/2PPD x 31 years) Hx Asthma: Yes Hx Respiratory Symptoms: Yes (MARTINEZ x 2 months) SOB: Yes (at times due to asthma -- uses rescue inhaler PRN -- last used one year ago) COPD: No Hx Pneumonia: No Hx Sleep Apnea: No - Cardiovascular System Hx Hypertension: No Hx Coronary Artery Disease: No Hx Heart Attack/AMI: No Hx Angina: No Hx Percutaneous Transluminal Coronary Angioplasty (PTCA): No Hx Cardia Arrhythmia: No Hx Pacemaker: No Hx Internal Defibrillator: No Hx Valvular Heart Disease: No Hx Heart Murmur: No Hx Peripheral Vascular Disease: No - Central Nervous System Hx Neuromuscular Disorder: No Hx Seizures: No CVA: No Hx Back Pain: Yes Hx Psychiatric Problems: No - Gastrointestinal Hx Ulcer: No Hx Gastroesophageal Reflux Disease: No - Endocrine Hx Renal Disease: No Hx End Stage Renal Disease: No Hx Cirrhosis: No Hx Liver Disease: No Hx Insulin Dependent Diabetes: No Hx Non-Insulin Dependent Diabetes: No Hx Thyroid Disease: No Hx Hypothyroidism: No Hx Hyperthyroidism: No - Hematic Hx Anemia: Yes (Hgb 7.9 after 4 units PRBC received 02/18/16) Hx Sickle Cell Disease: No - Other Systems Hx Alcohol Use: No Hx Substance Use: No Hx Cancer: No Hx Obesity: No
[2017-08-14] MEDS ORDERED: DIPRIVAN 10 MG/ML IV ONE ×3 (09:59→11:22)
[2017-08-14] MEDS ORDERED: LIDOCAINE VISCOUS 2% ONE (11:14)
--- NOTE | 2017-08-14 11:29 | Post Operative Note ---
Pre-op diagnosis: Rectal Bleeding Post-op diagnosis: other (Hemorrhoids) Findings: 1. Grade III Internal hemorrhoids with some oozing of blood - Banded x 4 2. Colonoscopy otherwise normal Procedure: Colonoscopy with hemorrhoidal banding Anesthesia: MAC Surgeon: JAMILAH ROSA Estimated blood loss: minimal Pathology: none Specimen disposition: other (N/A) Condition: stable Disposition: floor (Recs: 1. Advance to regular/high-fiber diet. 2. Topical cream for hemorrhoid pain or bleeding. 3. OK to d/c when taking PO and anemia stabilized. 4. MVI daily therapy given chronic anemia. 5. F/U in the office for further management.)
[2017-08-14] MEDS ORDERED: XYLOCAINE TOPICAL 2% 30ML TP PRN (11:34)
--- NOTE | 2017-08-14 11:43 | Progress Note ---
Assessment and Plan Assessment and plan: 47 Year old male admitted symptomatic anemia via EMS, found in the ED to have a hgb of 3. Patient also was noted to be complaining of palpitations and rapid HR , dizziness and parasthesia on the left side enroute to the hospital with top hr at 165. Sinus tachycardia per documentation. On discussion with the patient. He takes Tylenol dose chronically for more than a month now Symptomatic with profound Severe Anemia GI bleed ?Hemorroidal status post banding 4 Pancytopenia(Anemia, thrombocytopenia, leukopenia) Sinus Tachycardia Hypercoagulable state Tobacco use disorder Plan * Continue supportive care * S/P 3 UNITS PRBC, additional 2 units of blood given. Monitor H/H * Transfuse PRN * 15 MINS TOBACCO CESSATION COUNSELLING * Avoid Anticoagulation medications * Discharge in a.m. if hemoglobin remains stable. Patient tolerated by mouth. * Nicotin patch if needed. * Discussed with patient the need to quit tobacco and quit Goody powder use. * Preparation H * SCD. * PPI BID * A discharge in a.m. if hemoglobin is stable. Patient tolerated diet History Interval history: Patient Seen and examined this morning in no acute distress. Colonoscopy today shows hemorrhoids with some oozing banded 4 was done. We'll monitor overnight and possible discharge in a.m. Hospitalist Physical - Physical exam Narrative exam: VITAL SIGNS: Reviewed. GENERAL: The patient appeared well nourished and normally developed. Vital signs as documented. HEAD: No signs of head trauma. EYES: Pupils are equal. Extraocular motions intact. EARS: Hearing grossly intact. MOUTH: Oropharynx is normal. NECK: No adenopathy, no JVD. CHEST: Chest with clear breath sounds bilaterally. No wheezes, rales, or rhonchi. CARDIAC: Regular rate and rhythm. S1 and S2, without murmurs, gallops, or rubs. VASCULAR: No Edema. Peripheral pulses normal and equal in all extremities. ABDOMEN: Soft, without detectable tenderness. No sign of distention. No rebound or guarding, and no masses palpated. Bowel Sounds normal. MUSCULOSKELETAL: Good range of motion of all major joints. Extremities without clubbing, cyanosis or edema. NEUROLOGIC EXAM: Alert and oriented x 3. No focal sensory or strength deficits. Speech normal. Follows commands. PSYCHIATRIC: Mood normal. SKIN: No rash or lesions. - Constitutional Vitals: Temp Pulse Resp BP Pulse Ox 98.1 F 53 L 20 122/71 96 08/14/17 11:26 08/14/17 11:26 08/14/17 11:26 08/14/17 11:26 08/14/17 11:26 General appearance: Present: no acute distress Results - Labs CBC & Chem 7: 08/14/17 05:11 08/14/17 05:11 Labs: Laboratory Last Values WBC 3.2 K/mm3 (4.5-11.0) L 08/14/17 05:11 RBC 4.05 M/mm3 (3.65-5.03) 08/14/17 05:11 Hgb 7.9 gm/dl (11.8-15.2) L 08/14/17 05:11 Hct 26.5 % (35.5-45.6) L 08/14/17 05:11 MCV 66 fl (84-94) L 08/14/17 05:11 MCH 20 pg (28-32) L 08/14/17 05:11 MCHC 30 % (32-34) L 08/14/17 05:11 RDW > 40.0 % (13.2-15.2) H 08/14/17 05:11 Plt Count 105 K/mm3 (140-440) L 08/14/17 05:11 Lymph % (Auto) TNR 08/12/17 12:11 [place] % (Auto) 8.2 % (0.0-7.3) H 08/14/17 05:11 Eos % (Auto) 2.5 % (0.0-4.3) 08/14/17 05:11 Baso % (Auto) TNR 08/12/17 12:11 Lymph # TNR 08/12/17 12:11 [place] # TNR 08/12/17 12:11 Eos # TNR 08/12/17 12:11 Baso # TNR 08/12/17 12:11 Add Manual Diff Complete 08/14/17 05:11 Total Counted 100 08/14/17 05:11 Seg Neutrophils % 44.5 % (40.0-70.0) 08/14/17 05:11 Seg Neuts % (Manual) 46.0 % (40.0-70.0) 08/14/17 05:11 Band Neutrophils % 0 % 08/14/17 05:11 Lymphocytes % (Manual) 46.0 % (13.4-35.0) H 08/14/17 05:11 Reactive Lymphs % (Man) 0 % 08/14/17 05:11 Monocytes % (Manual) 6.0 % (0.0-7.3) 08/14/17 05:11 Eosinophils % (Manual) 1.0 % (0.0-4.3) 08/14/17 05:11 Basophils % (Manual) 1.0 % (0.0-1.8) 08/14/17 05:11 Metamyelocytes % 0 % 08/14/17 05:11 Myelocytes % 0 % 08/14/17 05:11 Promyelocytes % 0 % 08/14/17 05:11 Blast Cells % 0 % 08/14/17 05:11 Nucleated RBC % Not Reportable 08/14/17 05:11 Seg Neutrophils # TNR 08/12/17 12:11 Seg Neutrophils # Man 1.5 K/mm3 (1.8-7.7) L 08/14/17 05:11 Band Neutrophils # 0.0 K/mm3 08/14/17 05:11 Lymphocytes # (Manual) 1.5 K/mm3 (1.2-5.4) 08/14/17 05:11 Abs React Lymphs (Man) 0.0 K/mm3 08/14/17 05:11 Monocytes # (Manual) 0.2 K/mm3 (0.0-0.8) 08/14/17 05:11 Eosinophils # (Manual) 0.0 K/mm3 (0.0-0.4) 08/14/17 05:11 Basophils # (Manual) 0.0 K/mm3 (0.0-0.1) 08/14/17 05:11 Metamyelocytes # 0.0 K/mm3 08/14/17 05:11 Myelocytes # 0.0 K/mm3 08/14/17 05:11 Promyelocytes # 0.0 K/mm3 08/14/17 05:11 Blast Cells # 0.0 K/mm3 08/14/17 05:11 WBC Morphology Not Reportable 08/14/17 05:11 Hypersegmented Neuts Not Reportable 08/14/17 05:11 Hyposegmented Neuts Not Reportable 08/14/17 05:11 Hypogranular Neuts Not Reportable 08/14/17 05:11 Smudge Cells Not Reportable 08/14/17 05:11 Toxic Granulation Not Reportable 08/14/17 05:11 Toxic Vacuolation Not Reportable 08/14/17 05:11 Dohle Bodies Not Reportable 08/14/17 05:11 Pelger-Huet Anomaly Not Reportable 08/14/17 05:11 Neelima Rods Not Reportable 08/14/17 05:11 Platelet Estimate Consistent w auto 08/14/17 05:11 Clumped Platelets Not Reportable 08/14/17 05:11 Plt Clumps, EDTA Not Reportable 08/14/17 05:11 Large Platelets Not Reportable 08/14/17 05:11 Giant Platelets Not Reportable 08/14/17 05:11 Platelet Satelliting Not Reportable 08/14/17 05:11 Plt Morphology Comment Not Reportable 08/14/17 05:11 RBC Morphology Not Reportable 08/14/17 05:11 Dimorphic RBCs Not Reportable 08/14/17 05:11 Polychromasia Not Reportable 08/14/17 05:11 Hypochromasia 2+ 08/14/17 05:11 Poikilocytosis 1+ 08/14/17 05:11 Anisocytosis 2+ 08/14/17 05:11 Microcytosis 1+ 08/14/17 05:11 Macrocytosis 1+ 08/14/17 05:11 Spherocytes Not Reportable 08/14/17 05:11 Pappenheimer Bodies Not Reportable 08/14/17 05:11 Sickle Cells Not Reportable 08/14/17 05:11 Target Cells Not Reportable 08/14/17 05:11 Tear Drop Cells Few 08/14/17 05:11 Ovalocytes 1+ 08/14/17 05:11 Helmet Cells Not Reportable 08/14/17 05:11 [place] Bodies Not Reportable 08/14/17 05:11 [place] Rings Not Reportable 08/14/17 05:11 [place] Cells Not Reportable 08/14/17 05:11 Bite Cells Not Reportable 08/14/17 05:11 Crenated Cell Not Reportable 08/14/17 05:11 Elliptocytes 1+ 08/14/17 05:11 Acanthocytes (Spur) 1+ 08/14/17 05:11 Rouleaux Not Reportable 08/14/17 05:11 Hemoglobin C Crystals Not Reportable 08/14/17 05:11 Schistocytes Few 08/14/17 05:11 Malaria parasites Not Reportable 08/14/17 05:11 Carlos Bodies Not Reportable 08/14/17 05:11 Hem Pathologist Commnt No 08/14/17 05:11 PT 16.4 Sec. (12.2-14.9) H 08/12/17 12:12 INR 1.25 (0.87-1.13) H 08/12/17 12:12 APTT 36.0 Sec. (24.2-36.6) 08/12/17 12:12 Sodium 141 mmol/L (137-145) 08/14/17 05:11 Potassium 4.3 mmol/L (3.6-5.0) 08/14/17 05:11 Chloride 106.8 mmol/L (98-107) 08/14/17 05:11 Carbon Dioxide 24 mmol/L (22-30) 08/14/17 05:11 Anion Gap 15 mmol/L 08/14/17 05:11 BUN 7 mg/dL (9-20) L 08/14/17 05:11 Creatinine 0.6 mg/dL (0.8-1.5) L 08/14/17 05:11 Estimated GFR > 60 ml/min 08/14/17 05:11 BUN/Creatinine Ratio 12 % 08/14/17 05:11 Glucose 80 mg/dL (75-100) 08/14/17 05:11 Calcium 8.2 mg/dL (8.4-10.2) L 08/14/17 05:11 Total Bilirubin 1.10 mg/dL (0.1-1.2) 08/14/17 05:11 AST 11 units/L (5-40) 08/14/17 05:11 ALT 6 units/L (7-56) L 08/14/17 05:11 Alkaline Phosphatase 54 units/L (35-129) 08/14/17 05:11 Troponin T < 0.010 ng/mL (0.00-0.029) 08/12/17 18:38 Total Protein 6.6 g/dL (6.3-8.2) 08/14/17 05:11 Albumin 3.4 g/dL (3.9-5) L 08/14/17 05:11 Albumin/Globulin Ratio 1.1 % 08/14/17 05:11 Blood Type O POSITIVE 08/12/17 13:31 Antibody Screen Negative 08/12/17 13:31 Crossmatch See Detail 08/12/17 13:31
[2017-08-14 11:47] VITALS: BP 137/75
--- NOTE | 2017-08-14 12:01 | Discharge Summary ---
Providers - Providers Date of Admission: 08/12/17 14:01 Attending physician: ANUJA WAGGONER MD 08/13/17 01:36 Consult to Physician [CONS] Routine Consulting Provider: ANDREW MARS Reason For Exam: Lower GI bleed/int Hemorrhoids Notified:: yes Primary care physician: RAYSA BALLESTEROS Hospitalization Reason for admission: GI BLEED Condition: Stable Hospital course: 47 Year old male admitted symptomatic anemia via EMS, found in the ED to have a hgb of 3. Patient also was noted to be complaining of palpitations and rapid HR , dizziness and parasthesia on the left side enroute to the hospital with top hr at 165. Sinus tachycardia per documentation. On discussion with the patient. He takes Tylenol dose chronically for more than a month now. Colonoscopy today shows hemorrhoids with some oozing banded 4 was done. Discussed with GI and patient can be discharged follow with Hemoonc to ensure no Thalasemia. Extensive counseling provided to the patient relates goodY powder and tobacco use Symptomatic with profound Severe Anemia GI bleed ?Hemorroidal status post banding 4 Pancytopenia(Anemia, thrombocytopenia, leukopenia) Sinus Tachycardia Hypercoagulable state Tobacco use disorder Possible Thalasemia Disposition: DC-01 TO HOME OR SELFCARE Time spent for discharge: 35 MINS Core Measure Documentation - Palliative Care Palliative Care/ Comfort Measures: Not Applicable - Core Measures Any of the following diagnoses?: none - VTE Discharge Requirements Deep Vein Thrombosis/Pulmonary Embolism Present on Admission: No Exam - Physical Exam Narrative exam: VITAL SIGNS: Reviewed. GENERAL: The patient appeared well nourished and normally developed. Vital signs as documented. HEAD: No signs of head trauma. EYES: Pupils are equal. Extraocular motions intact. EARS: Hearing grossly intact. MOUTH: Oropharynx is normal. NECK: No adenopathy, no JVD. CHEST: Chest with clear breath sounds bilaterally. No wheezes, rales, or rhonchi. CARDIAC: Regular rate and rhythm. S1 and S2, without murmurs, gallops, or rubs. VASCULAR: No Edema. Peripheral pulses normal and equal in all extremities. ABDOMEN: Soft, without detectable tenderness. No sign of distention. No rebound or guarding, and no masses palpated. Bowel Sounds normal. MUSCULOSKELETAL: Good range of motion of all major joints. Extremities without clubbing, cyanosis or edema. NEUROLOGIC EXAM: Alert and oriented x 3. No focal sensory or strength deficits. Speech normal. Follows commands. PSYCHIATRIC: Mood normal. SKIN: No rash or lesions. - Constitutional Vitals: Temp Pulse Resp BP Pulse Ox 98.1 F 52 L 19 137/75 95 08/14/17 11:26 08/14/17 11:41 08/14/17 11:41 08/14/17 11:41 08/14/17 11:41 Plan Activity: advance as tolerated, fall precautions Diet: low cholesterol Special Instructions: record daily weights, record daily BP diary Follow up with: PRIMARY CARE, [Referring] - 3-5 Days RICCO GIBBS DO [Staff Physician] - 7 Days Prescriptions: Calcium Polycarbophil [Fiber Tab] 625 mg PO QDAY #30 tablet Ferrous Sulfate [Feosol 325 MG tab] 325 mg PO BID #30 tablet traMADol [Ultram] 50 mg PO Q6HR PRN #14 tablet PRN Reason: Pain
--- NOTE | 2017-08-14 12:54 | Post Anesthesia Evaluation ---
- Post Anesthesia Evaluation Patient Participated: Yes Airway Patent: Yes Stable Respiratory Function: Yes Nausea/Vomiting: No Temp > 96.8F: Yes Pain Manageable: Yes Adequeate Hydration: Yes Anesthesia Complications: No
--- NOTE | 2017-08-14 13:44 | Operative Report ---
ENDOSCOPY DOCUMENT PROCEDURE PERFORMED: Colonoscopy with hemorrhoidal banding. PREOPERATIVE DIAGNOSIS: Rectal bleeding and symptomatic anemia. POSTOPERATIVE DIAGNOSES: Internal hemorrhoids, status post banding. ENDOSCOPIST: Mumtaz Lanza M.D. INSTRUMENT: [employer] video endoscope. MEDICATIONS: MAC anesthesia by [facility]. COMPLICATIONS: No apparent complications. ESTIMATED BLOOD LOSS: Minimal. SPECIMENS: None. IMPLANTS: Hemorrhoidal band x 4 applied to the internal hemorrhoids. ASSISTANTS: None. CONDITION AT THE END OF THE PROCEDURE: Stable. TECHNIQUE: The patient was informed of the risks and benefits of the procedure. He signed the informed consent to proceed. He was placed in a left lateral decubitus position. The above sedative medications were given. His vital signs remained stable throughout the procedure. The instrument was advanced from the anus to the cecum under direct visualization. The cecum was identified by the appendiceal orifice and the ileocecal valve. At that point, the bowel was insufflated and the endoscope was slowly withdrawn. The quality of preparation was good. FINDINGS: 1. Grade 3 internal hemorrhoids with some oozing of blood at the start of the procedure. a. Hemorrhoidal bands were applied x 4, using an upper endoscope. 2. The colonoscopy was otherwise normal to the cecum with no evidence of bleeding and a trace amount of yellow stool in both the right colon and the proximal left colon. RECOMMENDATIONS: 1. Advance to a regular/high-fiber diet. 2. Topical cream for hemorrhoidal pain or bleeding. 3. Okay to discharge home when taking oral food and his anemia has stabilized. 4. Multivitamin daily therapy given his chronic anemia. 5. Follow up in the office for further management. JOB# [id number] HERMINIA/NTS
[2017-08-15] MEDS ORDERED: FIBER TAB PO SCH (10:00)
[2017-08-15] MEDS ORDERED: THERAGRAN-M Tab PO SCH (10:00)
== END 2017-08-15 00:50 | disposition home or self-care (01) | DRG 347 ==
LOC: ED 11:20 → 3A 14:01
PROVIDERS: ADMIT Internal Medicine; ATTEND Internal Medicine
PROC: 30233N1 Transfusion of Nonautologous Red Blood Cells into Peripheral Vein, Percutaneous Approach (ICD-10-PCS; 2017-08-12)
PROC: 06LY4CC Occlusion of Hemorrhoidal Plexus with Extraluminal Device, Percutaneous Endoscopic Approach (ICD-10-PCS; principal; 2017-08-14)
DX: K64.8 Other hemorrhoids (principal); K29.71 Gastritis, unspecified, with bleeding; D61.818 Other pancytopenia; D68.59 Other primary thrombophilia; D62 Acute posthemorrhagic anemia; R00.2 Palpitations; E61.1 Iron deficiency; F17.200 Nicotine dependence, unspecified, uncomplicated; R00.0 Tachycardia, unspecified; D56.9 Thalassemia, unspecified; G43.909 Migraine, unspecified, not intractable, without status migrainosus
CPT/HCPCS: 36415; 71046; 80048; 80053; 84484; 85007; 85014; 85018; 85025; 85610; 85730; 86850; 86900; 86901; 86920; 93005; 93010; 99406; C9113; J2704; J7030; J7040; P9016

== ENCOUNTER 2017-09-27 14:04 | Emergency (ER) | payer SELFPAY ==
[2017-09-27 14:45] VITALS: BP 120/90
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
[2017-09-27] MEDS ORDERED: MOTRIN PO ONE (17:35)
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
== END 2017-09-27 20:38 | disposition home or self-care (01) ==
LOC: ED 14:04
DX: S13.4XXA Sprain of ligaments of cervical spine, initial encounter (principal); S39.012A Strain of muscle, fascia and tendon of lower back, initial encounter; J45.909 Unspecified asthma, uncomplicated; F17.200 Nicotine dependence, unspecified, uncomplicated; M17.0 Bilateral primary osteoarthritis of knee; V87.7XXA Person injured in collision between other specified motor vehicles (traffic), initial encounter; Y93.89 Activity, other specified; Y99.8 Other external cause status; Y92.410 Unspecified street and highway as the place of occurrence of the external cause
CPT/HCPCS: 72040; 72070; 99283

== ENCOUNTER 2017-12-09 09:12 | Inpatient (IN) | payer OTHER ==
[2017-12-09] MEDS ORDERED: DILAUDID IV ONE (09:57)
--- NOTE | 2017-12-09 09:57 | Emergency Department Report ---
ED Back Pain/Injury HPI - General Chief Complaint: Pain General Stated Complaint: BOXES FELL ON PT Time Seen by Provider: 12/09/17 09:40 Source: patient, EMS Mode of arrival: Stretcher Limitations: No Limitations - History of Present Illness Initial Comments: Patient is a 47-year-old male that presents emergency room after a fall at work. Patient states he tripped and a large stack of boxes fell on his back and patient then fell to the ground. Patient states he never lost consciousness or hit his head. Patient denies neck pain or neck tenderness. Patient complains of left knee pain, left thigh pain, left hip and left pelvis pain, lower back pain, thoracic back pain, right forearm pain. Patient denies headache and chest pain. Patient denies shortness of breath and fever. Patient arrives on backboard with a c-collar on via ems. Patient is A&O4. Patient answered all questions appropriately. MD Complaint: back pain, back injury, fall -: Sudden Similar Symptoms Previously: No Place: work Radiation: none Severity: severe Severity scale (0 -10): 10 Quality: sharp Consistency: constant Improves With: immobilization Worsens With: movement, walking Context: fall, other Associated Symptoms: difficulty walking. denies: confusion, weakness, chest pain, numbness, cough, difficulty urinating, diaphoresis, incontinence, fever/ chills, constipation, headaches, abdominal pain, loss of appetite, malaise, nausea/vomiting, rash, seizure, shortness of breath, syncope - Related Data Home Medications Medication Instructions Recorded Confirmed Last Taken No Known Home Medications [No 12/09/17 12/09/17 Unknown Reported Home Medications] Allergies Allergy/AdvReac Type Severity Reaction Status Date / Time No Known Allergies Allergy Verified 12/09/17 09:33 ED Review of Systems ROS: Stated complaint: BOXES FELL ON PT Other details as noted in HPI Constitutional: denies: chills, fever Eyes: denies: eye pain, eye discharge, vision change ENT: denies: ear pain, throat pain Respiratory: denies: cough, shortness of breath, wheezing Cardiovascular: denies: chest pain, palpitations Endocrine: no symptoms reported Gastrointestinal: denies: abdominal pain, nausea, diarrhea Genitourinary: denies: urgency, dysuria Musculoskeletal: back pain. denies: joint swelling Skin: denies: rash, lesions Neurological: denies: headache, weakness, paresthesias Psychiatric: denies: anxiety, depression Hematological/Lymphatic: denies: easy bleeding, easy bruising ED Past Medical Hx - Past Medical History Previous Medical History?: Yes Hx Hypertension: No Hx Heart Attack/AMI: No Hx Congestive Heart Failure: No Hx Diabetes: No Hx Pulmonary Embolism: No Hx Liver Disease: No Hx Renal Disease: No Hx Sickle Cell Disease: No Hx Arthritis: Yes (Both knees and the back) Hx Headaches / Migraines: Yes Hx Seizures: No Hx Asthma: Yes Hx COPD: No Hx HIV: No Additional medical history: Hemorrhoids - Surgical History Past Surgical History?: Yes Hx Coronary Stent: No Hx Pacemaker: No Hx Internal Defibrillator: No Additional Surgical History: deepti arthroscopy knee surgery - Family History Family history: no significant - Social History Smoking Status: Current Every Day Smoker Substance Use Type: None - Medications Home Medications: Home Medications Medication Instructions Recorded Confirmed Last Taken Type No Known Home Medications [No 12/09/17 12/09/17 Unknown History Reported Home Medications] ED Physical Exam - General Limitations: No Limitations General appearance: alert, in no apparent distress - Head Head exam: Present: atraumatic, normocephalic - Eye Eye exam: Present: normal appearance - ENT ENT exam: Present: mucous membranes moist - Neck Neck exam: Present: normal inspection, other (C collar intact to remove her C- spine exam. C-spine maintained and alignment during exam no tenderness noted. ) - Respiratory Respiratory exam: Present: normal lung sounds bilaterally. Absent: respiratory distress - Cardiovascular Cardiovascular Exam: Present: regular rate, normal rhythm. Absent: systolic murmur, diastolic murmur, rubs, gallop - GI/Abdominal GI/Abdominal exam: Present: soft, normal bowel sounds - Rectal Rectal exam: Present: deferred - Extremities Exam Extremities exam: Present: normal inspection, tenderness (tenderness to the left knee, left thigh, left hip and pelvis, left shoulder and right forearm. ) - Back Exam Back exam: Present: normal inspection, tenderness (over L3. ), other (patient rolled onto his right side in order to examine his back. CT maintaining in- line by nurse during exam. Back exam negative except for point tenderness over L3. Backboard removed and CT will be ordered.) - Neurological Exam Neurological exam: Present: alert, oriented X3, CN II-XII intact, motor sensory deficit - Psychiatric Psychiatric exam: Present: normal affect, normal mood - Skin Skin exam: Present: warm, dry, intact, normal color. Absent: rash ED Course Vital Signs 12/09/17 12/09/17 12/09/17 09:33 09:54 12:48 Temperature 99.6 F Pulse Rate 69 Respiratory 32 H 24 Rate Blood Pressure 165/93 O2 Sat by Pulse 100 100 95 Oximetry 12/09/17 12/09/17 12/09/17 13:00 14:55 15:01 Temperature Pulse Rate 54 L 44 L 42 L Respiratory 19 16 11 L Rate Blood Pressure 142/71 148/77 140/68 O2 Sat by Pulse 100 100 100 Oximetry - Reevaluation(s) Reevaluation #1: Patient found to have extremely low hemoglobin. Hospitalist consulted for admission. Dr. Colón to [facility] care. We'll type and screen and do a rectal for Hemoccult. 12/09/17 12:18 = Reevaluation #2: Hemoccult-positive 12/09/17 12:25 ED Medical Decision Making - Lab Data Result diagrams: 12/09/17 10:08 12/09/17 10:08 - Radiology Data Radiology results: report reviewed All plain films and CT lumbar spine are negative - Medical Decision Making Patient is a 47-year-old male that presents emergency room initially for a work- related fall and multiple musculoskeletal complaints. Musculoskeletal workup was negative however patient found to have extremely low hemoglobin secondary to GI bleed. Hemoccult positive. Hospitalist to admit for further evaluation and treatment. - Differential Diagnosis fall. gi bleed. pain. back pain Critical Care Time: Yes Critical care attestation.: If time is entered above; I have spent that time in minutes in the direct care of this critically ill patient, excluding procedure time. Critical Care Time: 45 minutes spent critical care time ED Disposition Clinical Impression: Lower GI bleed, Left shoulder pain, Lower back pain, Right forearm pain, Work related injury, Left hip pain, Fall, Knee pain, left, Acute thoracic back pain, Severe anemia, Anemia due to blood loss, acute Disposition: OP ADMIT IP TO THIS HOSP Is pt being admited?: Yes Does the pt Need Aspirin: No Condition: Critical Time of Disposition: 12:19
[2017-12-09 10:21] LABS: Mean Corpuscular HGB Conc 28 % (32-34); Red Blood Count 4.16 M/mm3 (3.65-5.03)
[2017-12-09 10:26] LABS: Hematocrit 21.8 % (35.5-45.6); Mean Corpuscular Hemoglobin 14 pg (28-32); Mean Corpuscular Volume 52 fl (84-94); Platelet Count 155 K/mm3 (140-440); Red Cell Distribution Width 23.8 % (13.2-15.2)
[2017-12-09 10:40] LABS: Alanine Aminotransferase 8 units/L (7-56); Albumin 3.8 g/dL (3.9-5); BUN/Creatinine Ratio 11; Blood Urea Nitrogen 8 mg/dL (9-20); Calcium 8.6 mg/dL (8.4-10.2); Hemolysis Index 3
[2017-12-09 11:13] LABS: Anisocytosis 2+; Band Neutrophils # (Manual) 0.1 K/mm3; Hypochromasia 3+; Schistocytes Rare; Total Cells Counted 100
[2017-12-09 11:14] LABS: Platelet Estimate Consistent w Auto; Target Cells Few
--- NOTE | 2017-12-09 11:28 | XRay Report ---
LEFT KNEE, 3 views: History: Left knee pain. The bony architecture is intact without evidence of fracture or dislocation. No significant soft tissue abnormality is seen. IMPRESSION: Left knee within normal limits.
--- NOTE | 2017-12-09 11:40 | XRay Report ---
RIGHT FOREARM: History: Pain, fall. One view of the forearm demonstrates normal mineralization and contours for this patient's age. No destructive changes are noted and the adjacent soft tissues are normal. IMPRESSION: No abnormality identified.
--- NOTE | 2017-12-09 11:40 | XRay Report ---
RIGHT HIP, 2 views: History: Pain, fall. The bony architecture is intact without evidence of fracture or dislocation. No significant soft tissue abnormality is seen. IMPRESSION: Normal right hip.
--- NOTE | 2017-12-09 11:41 | XRay Report ---
LEFT SHOULDER: History: Pain, fall. Routine views demonstrate normal bony and soft tissue structures with normal joint alignment of the shoulder. IMPRESSION: Normal study.
--- NOTE | 2017-12-09 11:41 | XRay Report ---
THORACIC SPINE, 2 VIEWS: HISTORY: back pain. Normal bone mineralization. No evidence for compression deformity, malalignment, or bone lesion. The posterior ribs are intact. The paraspinal soft tissues are within normal limits. IMPRESSION: Thoracic spine within normal limits.
--- NOTE | 2017-12-09 11:42 | XRay Report ---
CERVICAL SPINE, 3 views: History: Neck pain. Findings: The vertebral bodies, disk spaces, posterior elements and prevertebral soft tissues are unremarkable. The dens is intact. Moderate degenerative disc disease is identified a C5-6 and C6-7. No acute fracture or malalignment is identified. Impression: Cervical spondylosis. No evidence for acute injury to the cervical spine.
--- NOTE | 2017-12-09 11:48 | Cat Scan Report ---
CT LUMBAR SPINE WITH CONTRAST History: Back pain, work injury. Technique: Helical CT in 1.25 mm intervals. Sagittal and coronal reformatted images. Comparison: No relevant comparison. Findings: There is normal height and alignment of the lumbar vertebral bodies. The posterior elements are in appropriate relationship. There is no evidence for compression deformity, subluxation or bone lesion. The disc spaces are within normal limits. No significant degenerative disc disease. Moderate chronic hypertrophic facet arthropathy is identified at L5-S1. Minimal facet arthropathy at L4-5. The remaining facet joints are unremarkable. There is mild to moderate thickening of the ligamentum flavum at the level of L5-S1. There is borderline spinal canal narrowing at this level secondary to chronic degenerative changes. IMPRESSION: No evidence for acute injury. Chronic facet arthropathy most pronounced at L5-S1 as described above.
[2017-12-09] MEDS ORDERED: DILAUDID ONE (12:42)
[2017-12-09 12:48] LABS: Amphetamine Screen,Urine PRESUMPTIVE NEGATIVE; Benzodiazepines Screen,Urine PRESUMPTIVE NEGATIVE; Cannabinoid Screen,Urine PRESUMPTIVE NEGATIVE; Cocaine Screen,Urine PRESUMPTIVE NEGATIVE; Methadone Screen,Urine PRESUMPTIVE NEGATIVE; Opiate Screen,Urine PRESUMPTIVE NEGATIVE
--- NOTE | 2017-12-10 01:26 | Event Note ---
Date: 12/09/17 See dictated history and physical in the reports
[2017-12-10] MEDS ORDERED: NACL 0.9% 500 ML 500 ML IV ONE (01:27)
[2017-12-10] MEDS ORDERED: ZOFRAN IV PRN ×2 (01:28→01:35)
[2017-12-10] MEDS ORDERED: SODIUM CHLORIDE FLUSH SYRINGE 10 ML IV PRN ×2 (01:28→01:35)
[2017-12-10] MEDS ORDERED: TYLENOL PO PRN ×2 (01:28→01:35)
--- NOTE | 2017-12-10 01:48 | History and Physical Report ---
CHIEF COMPLAINT: Pain all over. HISTORY OF PRESENT ILLNESS: The patient came to the Emergency Room after a fall at work. The patient had a large stack of boxes fell on his back. The patient was evaluated for left hip pain, left pelvis pain and low back pain. X-rays were negative for fractures. Incidental labs showed low hemoglobin and hematocrit of 6.0 and 21.8 and hence the admission. The patient has easy fatigability. No shortness of breath. No chest pain. No syncope. PAST MEDICAL HISTORY: Significant for headaches, migraines, asthma, hemorrhoids. The patient has bleeding from hemorrhoids. PAST SURGICAL HISTORY: Bilateral arthroscopy of the knee surgery. FAMILY HISTORY: None. SOCIAL HISTORY: Current every day smoker. REVIEW OF SYSTEMS: Significant for easy fatigability. Otherwise, review of systems negative. CURRENT MEDICATIONS: None. PHYSICAL EXAMINATION: GENERAL: Middle-aged male, cooperative during examination. HEENT: Mucous membranes are pale. NECK: Supple, no lymphadenopathy, no thyromegaly. LUNGS: Clear to auscultation and percussion. Good air entry. CARDIOVASCULAR: S1, S2 heard. No gallop, no murmur, no rub. Apical impulse in the left fifth intercostal space and midclavicular line. ABDOMEN: Soft and benign. No hepatosplenomegaly. No guarding, no rigidity. Hernial orifices are normal. Hemorrhoids present. EXTREMITIES: Good pedal pulses. No pedal edema. CENTRAL NERVOUS SYSTEM: Alert and oriented x 4, nonfocal exam. SKIN: Normal. LABORATORY DATA: X-rays are normal. No fractures. H and H is 6.0 and 21.8. Electrolytes are normal. Bicarbonate is 21. Glucose is 63. Albumin is slightly low at 3.8. ASSESSMENT AND PLAN: 1. Acute anemia secondary to blood loss possible secondary to hemorrhoids. GI evaluation requested. Also, iron studies, B12 and folic acid ordered. The patient to be transfused 2 units of blood. Multiple joint pains. Symptomatic treatment. 2. Malnutrition, mild. Needs dietary supplements. 3. Deep venous thrombosis prophylaxis, only SCDs. 4. GI prophylaxis, famotidine. JOB# [id number] VSM/NTS
[2017-12-10] MEDS: PEPCID IV SCH ×3 (04:00→21:27)
[2017-12-10 07:08] LABS: % Iron Saturation 4.12 %
[2017-12-10] MEDS: MORPHINE IV PRN (07:40)
--- NOTE | 2017-12-10 09:43 | Gastroenterology Consultation ---
<NEILMICAHROSALIND MONTEJO - Last Filed: 12/10/17 09:35> History of Present Illness - Reason for Consult Consult date: 12/10/17 GI bleeding Requesting physician: MAYNOR FAITH - History of Present Illness Mr Mercedes is a 47 y/o male admitted after a fall at work. Apparently some boxes fell on him. Xrays were negative for fractures, however it was incidentally found that the patient was anemic at 6.0/21.8. Mr Mercedes has been severely anemic over the past 2 years and has underwent EGDs and colonoscopies. He is noted to have an MCV of 52. He does report rectal bleeding intermittently since Aug 2016. No abdominal pain. He was first seen in 2015 with severely low Hgb and underwent EGD and colonoscopy ( pt was taking Goody powders, and advised against this) and had hemorrhoidal banding. He was again seen in 08/2017 , non compliant with follow up, with severe anemia and underwent second colonoscopy with hemorrhoidal banding. He reports he continued to have intermittent rectal bleeding, but has not been seen in clinic. Past History Past Medical History: other (migraines asthma, hemorrhoids) Past Surgical History: total knee replacement Social history: no significant social history Family history: no significant family history Medications and Allergies Allergies Allergy/AdvReac Type Severity Reaction Status Date / Time No Known Allergies Allergy Verified 12/09/17 09:33 Home Medications Medication Instructions Recorded Confirmed Last Taken Type No Known Home Medications [No 12/09/17 12/09/17 Unknown History Reported Home Medications] Active Meds: Active Medications Acetaminophen (Tylenol) 650 mg PO Q4H PRN PRN Reason: Pain MILD(1-3)/Fever >100.5/MCKEON Famotidine (Pepcid) 20 mg IV BID [facility] Last Admin: 12/10/17 04:00 Dose: 20 mg Sodium Chloride (Nacl 0.9% 1000 Ml) 1,000 mls @ 75 mls/hr IV DIRECT [facility] Morphine Sulfate (Morphine) 2 mg IV Q4H PRN PRN Reason: Pain, Moderate (4-6) Last Admin: 12/10/17 07:40 Dose: 2 mg Ondansetron HCl (Zofran) 4 mg IV Q8H PRN PRN Reason: Nausea And Vomiting Oxycodone/Acetaminophen (Percocet 5/325) 1 tab PO Q6H PRN PRN Reason: Pain, Moderate (4-6) Sodium Chloride (Sodium Chloride Flush Syringe 10 Ml) 10 ml IV BID [facility] Sodium Chloride (Sodium Chloride Flush Syringe 10 Ml) 10 ml IV PRN PRN PRN Reason: LINE FLUSH Review of Systems - Review of Systems All systems: negative Gastrointestinal: hematochezia Exam - Constitutional Vital Signs: Temp Pulse Resp BP Pulse Ox 98.0 F 51 L 18 138/81 100 12/10/17 07:36 12/10/17 07:36 12/10/17 07:36 12/10/17 07:36 12/10/17 07:36 General appearance: no acute distress - EENT Eyes: EOM intact ENT: hearing intact - Respiratory Respiratory: bilateral: CTA - Cardiovascular Rhythm: regular Heart Sounds: Present: S1 & S2 - Gastrointestinal General gastrointestinal: Present: soft, non-tender - Integumentary Integumentary: Present: warm, dry - Neurologic Neurological: alert and oriented x3 - Psychiatric Psychiatric: appropriate mood/affect - Labs CBC & Chem 7: 12/09/17 10:08 12/09/17 10:08 Lab Results: Laboratory Results - last 24 hr 12/09/17 12/09/17 12/09/17 10:08 10:08 12:21 WBC 5.0 RBC 4.16 Hgb 6.0 L Hct 21.8 L MCV 52 L MCH 14 L MCHC 28 L RDW 23.8 H Plt Count 155 Add Manual Diff Complete Total Counted 100 Seg Neuts % (Manual) 69.0 Band Neutrophils % 1.0 Lymphocytes % (Manual) 22.0 Reactive Lymphs % (Man) 0 Monocytes % (Manual) 5.0 Eosinophils % (Manual) 2.0 Basophils % (Manual) 1.0 Metamyelocytes % 0 Myelocytes % 0 Promyelocytes % 0 Blast Cells % 0 Nucleated RBC % Not Reportable Seg Neutrophils # Man 3.5 Band Neutrophils # 0.1 Lymphocytes # (Manual) 1.1 L Abs React Lymphs (Man) 0.0 Monocytes # (Manual) 0.3 Eosinophils # (Manual) 0.1 Basophils # (Manual) 0.1 Metamyelocytes # 0.0 Myelocytes # 0.0 Promyelocytes # 0.0 Blast Cells # 0.0 WBC Morphology Not Reportable Hypersegmented Neuts Not Reportable Hyposegmented Neuts Not Reportable Hypogranular Neuts Not Reportable Smudge Cells Not Reportable Toxic Granulation Not Reportable Toxic Vacuolation Not Reportable Dohle Bodies Not Reportable Pelger-Huet Anomaly Not Reportable Neelima Rods Not Reportable Platelet Estimate Consistent w auto Clumped Platelets Not Reportable Plt Clumps, EDTA Not Reportable Large Platelets Not Reportable Giant Platelets Not Reportable Platelet Satelliting Not Reportable Plt Morphology Comment Not Reportable RBC Morphology Not Reportable Dimorphic RBCs Not Reportable Polychromasia Not Reportable Hypochromasia 3+ Poikilocytosis Not Reportable Anisocytosis 2+ Microcytosis 1+ Macrocytosis Not Reportable Spherocytes Not Reportable Pappenheimer Bodies Not Reportable Sickle Cells Not Reportable Target Cells Few Tear Drop Cells Not Reportable Ovalocytes Not Reportable Helmet Cells Not Reportable [place] Bodies Not Reportable [place] Rings Not Reportable Pascale Cells Not Reportable Bite Cells Not Reportable Crenated Cell Not Reportable Elliptocytes Not Reportable Acanthocytes (Spur) Not Reportable Rouleaux Not Reportable Hemoglobin C Crystals Not Reportable Schistocytes Rare Malaria parasites Not Reportable Carlos Bodies Not Reportable Hem Pathologist Commnt No Sodium 144 Potassium 3.9 Chloride 110.3 H Carbon Dioxide 21 L Anion Gap 17 BUN 8 L Creatinine 0.7 L Estimated GFR > 60 BUN/Creatinine Ratio 11 Glucose 63 L Hemoglobin A1c Calcium 8.6 Iron TIBC % Saturation Transferrin Total Bilirubin 0.50 AST 15 ALT 8 Alkaline Phosphatase 114 Total Protein 7.6 Albumin 3.8 L Albumin/Globulin Ratio 1.0 Vitamin B12 Urine Opiates Screen Presumptive negative Urine Methadone Screen Presumptive negative Ur Barbiturates Screen Presumptive negative Ur Phencyclidine Scrn Presumptive negative Ur Amphetamines Screen Presumptive negative U Benzodiazepines Scrn Presumptive negative Urine Cocaine Screen Presumptive negative U Marijuana (THC) Screen Presumptive negative Drugs of Abuse Note Disclamer Blood Type Antibody Screen Crossmatch 12/09/17 12/10/17 12/10/17 12:25 05:38 05:38 WBC RBC Hgb Hct MCV MCH MCHC RDW Plt Count Add Manual Diff Total Counted Seg Neuts % (Manual) Band Neutrophils % Lymphocytes % (Manual) Reactive Lymphs % (Man) Monocytes % (Manual) Eosinophils % (Manual) Basophils % (Manual) Metamyelocytes % Myelocytes % Promyelocytes % Blast Cells % Nucleated RBC % Seg Neutrophils # Man Band Neutrophils # Lymphocytes # (Manual) Abs React Lymphs (Man) Monocytes # (Manual) Eosinophils # (Manual) Basophils # (Manual) Metamyelocytes # Myelocytes # Promyelocytes # Blast Cells # WBC Morphology Hypersegmented Neuts Hyposegmented Neuts Hypogranular Neuts Smudge Cells Toxic Granulation Toxic Vacuolation Dohle Bodies Pelger-Huet Anomaly Neelima Rods Platelet Estimate Clumped Platelets Plt Clumps, EDTA Large Platelets Giant Platelets Platelet Satelliting Plt Morphology Comment RBC Morphology Dimorphic RBCs Polychromasia Hypochromasia Poikilocytosis Anisocytosis Microcytosis Macrocytosis Spherocytes Pappenheimer Bodies Sickle Cells Target Cells Tear Drop Cells Ovalocytes Helmet Cells [place] Bodies [place] Rings Pascale Cells Bite Cells Crenated Cell Elliptocytes Acanthocytes (Spur) Rouleaux Hemoglobin C Crystals Schistocytes Malaria parasites Carlos Bodies Hem Pathologist Commnt Sodium Potassium Chloride Carbon Dioxide Anion Gap BUN Creatinine Estimated GFR BUN/Creatinine Ratio Glucose Hemoglobin A1c < 4.2 Calcium Iron 12 L TIBC 291 % Saturation 4.12 Transferrin 253 Total Bilirubin AST ALT Alkaline Phosphatase Total Protein Albumin Albumin/Globulin Ratio Vitamin B12 Urine Opiates Screen Urine Methadone Screen Ur Barbiturates Screen Ur Phencyclidine Scrn Ur Amphetamines Screen U Benzodiazepines Scrn Urine Cocaine Screen U Marijuana (THC) Screen Drugs of Abuse Note Blood Type O POSITIVE Antibody Screen Negative Crossmatch See Detail 12/10/17 05:38 WBC RBC Hgb Hct MCV MCH MCHC RDW Plt Count Add Manual Diff Total Counted Seg Neuts % (Manual) Band Neutrophils % Lymphocytes % (Manual) Reactive Lymphs % (Man) Monocytes % (Manual) Eosinophils % (Manual) Basophils % (Manual) Metamyelocytes % Myelocytes % Promyelocytes % Blast Cells % Nucleated RBC % Seg Neutrophils # Man Band Neutrophils # Lymphocytes # (Manual) Abs React Lymphs (Man) Monocytes # (Manual) Eosinophils # (Manual) Basophils # (Manual) Metamyelocytes # Myelocytes # Promyelocytes # Blast Cells # WBC Morphology Hypersegmented Neuts Hyposegmented Neuts Hypogranular Neuts Smudge Cells Toxic Granulation Toxic Vacuolation Dohle Bodies Pelger-Huet Anomaly Neelima Rods Platelet Estimate Clumped Platelets Plt Clumps, EDTA Large Platelets Giant Platelets Platelet Satelliting Plt Morphology Comment RBC Morphology Dimorphic RBCs Polychromasia Hypochromasia Poikilocytosis Anisocytosis Microcytosis Macrocytosis Spherocytes Pappenheimer Bodies Sickle Cells Target Cells Tear Drop Cells Ovalocytes Helmet Cells [place] Bodies [place] Rings Pascale Cells Bite Cells Crenated Cell Elliptocytes Acanthocytes (Spur) Rouleaux Hemoglobin C Crystals Schistocytes Malaria parasites Carlos Bodies Hem Pathologist Commnt Sodium Potassium Chloride Carbon Dioxide Anion Gap BUN Creatinine Estimated GFR BUN/Creatinine Ratio Glucose Hemoglobin A1c Calcium Iron TIBC % Saturation Transferrin Total Bilirubin AST ALT Alkaline Phosphatase Total Protein Albumin Albumin/Globulin Ratio Vitamin B12 374.4 Urine Opiates Screen Urine Methadone Screen Ur Barbiturates Screen Ur Phencyclidine Scrn Ur Amphetamines Screen U Benzodiazepines Scrn Urine Cocaine Screen U Marijuana (THC) Screen Drugs of Abuse Note Blood Type Antibody Screen Crossmatch Assessment and Plan 1. Rectal bleeding 2. Severe anemia -Pt has been counseled to refrain from NSAID use -He has also been instructed regarding follow up in clinic for pill cam -Monitor H/H and transfuse as needed -Recommend Hematology consult for assistance with management with the severely anemic pt -Can consider re-band of hemorrhoids vs surgical consult for likely repeated rectal bleeding. -Further recommendations to follow. <MIHAELA PARDO - Last Filed: 12/10/17 11:27> Medications and Allergies Active Meds: Active Medications Acetaminophen (Tylenol) 650 mg PO Q4H PRN PRN Reason: Pain MILD(1-3)/Fever >100.5/MCKEON Famotidine (Pepcid) 20 mg IV BID [facility] Last Admin: 12/10/17 04:00 Dose: 20 mg Sodium Chloride (Nacl 0.9% 1000 Ml) 1,000 mls @ 75 mls/hr IV DIRECT [facility] Morphine Sulfate (Morphine) 2 mg IV Q4H PRN PRN Reason: Pain, Moderate (4-6) Last Admin: 12/10/17 07:40 Dose: 2 mg Ondansetron HCl (Zofran) 4 mg IV Q8H PRN PRN Reason: Nausea And Vomiting Oxycodone/Acetaminophen (Percocet 5/325) 1 tab PO Q6H PRN PRN Reason: Pain, Moderate (4-6) Sodium Chloride (Sodium Chloride Flush Syringe 10 Ml) 10 ml IV BID [facility] Sodium Chloride (Sodium Chloride Flush Syringe 10 Ml) 10 ml IV PRN PRN PRN Reason: LINE FLUSH Exam - Constitutional Vital Signs: Temp Pulse Resp BP Pulse Ox 98.0 F 51 L 18 138/81 100 12/10/17 07:36 12/10/17 07:36 12/10/17 07:36 12/10/17 07:36 12/10/17 07:36 - Labs CBC & Chem 7: 12/10/17 09:36 12/09/17 10:08 Lab Results: Laboratory Results - last 24 hr 12/09/17 12/09/17 12/10/17 12:21 12:25 05:38 WBC RBC Hgb Hct MCV MCH MCHC RDW Plt Count Hemoglobin A1c < 4.2 Iron TIBC % Saturation Transferrin Vitamin B12 Urine Opiates Screen Presumptive negative Urine Methadone Screen Presumptive negative Ur Barbiturates Screen Presumptive negative Ur Phencyclidine Scrn Presumptive negative Ur Amphetamines Screen Presumptive negative U Benzodiazepines Scrn Presumptive negative Urine Cocaine Screen Presumptive negative U Marijuana (THC) Screen Presumptive negative Drugs of Abuse Note Disclamer Blood Type O POSITIVE Antibody Screen Negative Crossmatch See Detail 12/10/17 12/10/17 12/10/17 05:38 05:38 09:36 WBC 4.5 RBC 4.29 Hgb 7.2 L Hct 24.9 L MCV 58 L MCH 17 L MCHC 29 L RDW 32.8 H Plt Count 134 L Hemoglobin A1c Iron 12 L TIBC 291 % Saturation 4.12 Transferrin 253 Vitamin B12 374.4 Urine Opiates Screen Urine Methadone Screen Ur Barbiturates Screen Ur Phencyclidine Scrn Ur Amphetamines Screen U Benzodiazepines Scrn Urine Cocaine Screen U Marijuana (THC) Screen Drugs of Abuse Note Blood Type Antibody Screen Crossmatch Assessment and Plan - Patient Problems (1) Rectal arterial hemorrhage Current Visit: Yes Status: Acute Plan to address problem: The patient has had recurrent bleeding which by description seems arterial, " blood squirting, pulsating, into the stool." He has had colonoscopy in 2015 with hemorrhoid banding and repeat colonoscopy with banding in August 2017. Needs surgery at this point. May benefit from pill camera as outpatient, but the rectal bleeding likely explains the anemia. Agree with considering IV iron load as he reports taking PO iron regularly. No plans to repeat colonoscopy. I will s/o and f/u at your request and see him in the office a few weeks after D /C. Mihaela Pardo MD
[2017-12-10] MEDS ORDERED: SODIUM CHLORIDE FLUSH SYRINGE 10 ML IV SCH (10:00)
[2017-12-10 10:38] LABS: Mean Corpuscular HGB Conc 29 % (32-34); Red Blood Count 4.29 M/mm3 (3.65-5.03)
[2017-12-10 10:44] LABS: Hematocrit 24.9 % (35.5-45.6); Hemoglobin 7.2 gm/dl (11.8-15.2); Mean Corpuscular Hemoglobin 17 pg (28-32); Mean Corpuscular Volume 58 fl (84-94); Platelet Count 134 K/mm3 (140-440); Red Cell Distribution Width 32.8 % (13.2-15.2)
[2017-12-10 11:24] LABS: Anisocytosis 2+; Eosinophils % (Manual) 0 % (0.0-4.3); Hypochromasia 3+; Schistocytes Few; Total Cells Counted 100
[2017-12-10 11:25] LABS: Large Platelets Few; Ovalocytes Few; Platelet Estimate Consistent w Auto; Target Cells Few; Tear Drop Cells Rare
[2017-12-10] MEDS: SODIUM CHLORIDE FLUSH SYRINGE 10 ML IV SCH ×2 (15:06→21:27)
--- NOTE | 2017-12-10 15:24 | Progress Note ---
Subjective Date of service: 12/10/17 Interval history: Mr Mercedes is a 47 y/o AA male admitted after a fall at work. Apparently some boxes fell on him. Xrays were negative for fractures, however it was incidentally found that the patient was anemic at 6.0/21.8. Mr Mercedes has been severely anemic over the past 2 years and has underwent EGDs and colonoscopies. He is noted to have an MCV of 52. He does report rectal bleeding intermittently since Aug 2016. No abdominal pain. States he had hemorrhoidal banding x 2. . He reports he continues to have intermittent rectal bleeding, but apparently has been noncompliant with GI follow-up. 12/10 patient is awake and alert, no apparent distress, heart and labs reviewed, GI consult note reviewed and appreciated Presently complains of headache left knee pain and left mid back pain since the work related injury He denies any fever or chills Denies any chest pain or shortness of breath Denies any abdominal pain nausea vomiting or diarrhea Assessment and plan: Severe microcytic anemia: Status post 2 units of PRBC transfusion. Post transfusion Hb is 7.2 Monitor H&H Presently he denies any active rectal bleeding Intermittent rectal bleed: Secondary to hemorrhoids Status post banding of the hemorrhoids 2 GI consult note reviewed We will request general surgery consult as banding has failed to stop His hemorrhoidal bleeding Left a message with Dr. Gregory on his cell phone Objective - Constitutional Vitals: Vital Signs - 12hr 12/10/17 12/10/17 12/10/17 03:50 04:25 04:30 Temperature 97.1 F L 97.0 F L Pulse Rate 58 L 56 L 50 L Respiratory 20 20 Rate Blood Pressure 135/74 130/70 132/70 Blood Pressure [Left] O2 Sat by Pulse 100 100 100 Oximetry 12/10/17 12/10/17 12/10/17 04:35 04:40 04:56 Temperature 97.2 F L 97.4 F L 98.4 F Pulse Rate 52 L 49 L 63 Respiratory 20 20 18 Rate Blood Pressure 136/74 135/73 Blood Pressure 135/71 [Left] O2 Sat by Pulse 98 100 100 Oximetry 12/10/17 12/10/17 12/10/17 05:40 05:55 06:00 Temperature 97.6 F 98.0 F 97.8 F Pulse Rate 50 L 50 L 52 L Respiratory 18 20 20 Rate Blood Pressure 149/70 142/72 146/74 Blood Pressure [Left] O2 Sat by Pulse 100 100 100 Oximetry 12/10/17 12/10/17 12/10/17 06:05 06:10 06:15 Temperature 97.6 F 97.6 F 97.6 F Pulse Rate 50 L 49 L 54 L Respiratory 18 18 18 Rate Blood Pressure 140/70 140/72 140/77 Blood Pressure [Left] O2 Sat by Pulse 100 100 100 Oximetry 12/10/17 12/10/17 12/10/17 07:25 07:30 07:36 Temperature 97.1 F L 97.6 F 98.0 F Pulse Rate 52 L 56 L 51 L Respiratory 20 20 18 Rate Blood Pressure 144/83 146/78 138/81 Blood Pressure [Left] O2 Sat by Pulse 100 100 100 Oximetry 12/10/17 12:52 Temperature 98.3 F Pulse Rate 52 L Respiratory 20 Rate Blood Pressure Blood Pressure 129/98 [Left] O2 Sat by Pulse 99 Oximetry General appearance: Present: no acute distress, well-nourished - EENT Eyes: PERRL, EOM intact ENT: hearing intact, clear oral mucosa, no thrush - Neck Neck: supple, normal ROM, no masses or JVD - Respiratory Respiratory effort: normal Respiratory: bilateral: CTA - Cardiovascular Rhythm: regular Heart Sounds: Present: S1 & S2 Extremities: No edema - Gastrointestinal General gastrointestinal: Present: soft, non-tender. Absent: hepatomegaly, splenomegaly Rectal Exam: deferred - Genitourinary Male genitourinary: deferred - Integumentary Integumentary: clear - Musculoskeletal Musculoskeletal: strength equal bilaterally - Neurologic Neurologic: CNII-XII intact, moves all extremities - Labs CBC & Chem 7: 12/10/17 09:36 12/09/17 10:08 Labs: Abnormal lab results 12/09/17 12/10/17 12/10/17 Range/Units 12:25 05:38 09:36 Hgb 7.2 L (11.8-15.2) gm/dl Hct 24.9 L (35.5-45.6) % MCV 58 L (84-94) fl MCH 17 L (28-32) pg MCHC 29 L (32-34) % RDW 32.8 H (13.2-15.2) % Plt Count 134 L (140-440) K/mm3 Iron 12 L (49-181) ug/dL Crossmatch See Detail
[2017-12-10] MEDS: NACL 0.9% 1000 ML 1,000 ML IV SCH (21:29)
--- NOTE | 2017-12-10 22:55 | Consultation ---
History of Present Illness Consult date: 12/10/17 Reason for consult: other (hemorrhoids) Requesting physician: JARET LANGSTON Chief complaint: intermittent rectal bleeding - History of present illness History of present illness: 47yo M with chronic intermittent rectal bleeding was admitted for anemia. Pt denies any active bleeding at this time. Reports that he has been managed by GI as an out-pt with hemorrhoidal banding. Has had a total of 4 bands. Still continues to have bleeding. GI recommended surgical evaluation. Pt has no other complaints. Past History Past Medical History: other (migraines asthma, hemorrhoids) Past Surgical History: total knee replacement Social history: no significant social history Family history: no significant family history Medications and Allergies Allergies Allergy/AdvReac Type Severity Reaction Status Date / Time No Known Allergies Allergy Verified 12/09/17 09:33 Home Medications Medication Instructions Recorded Confirmed Last Taken Type No Known Home Medications [No 12/09/17 12/09/17 Unknown History Reported Home Medications] Active Meds: Active Medications Acetaminophen (Tylenol) 650 mg PO Q4H PRN PRN Reason: Pain MILD(1-3)/Fever >100.5/MCKEON Famotidine (Pepcid) 20 mg IV BID [facility] Last Admin: 12/10/17 21:27 Dose: 20 mg Sodium Chloride (Nacl 0.9% 1000 Ml) 1,000 mls @ 42 mls/hr IV DIRECT [facility] Last Admin: 12/10/17 21:29 Dose: 42 mls/hr Morphine Sulfate (Morphine) 2 mg IV Q4H PRN PRN Reason: Pain, Moderate (4-6) Last Admin: 12/10/17 07:40 Dose: 2 mg Ondansetron HCl (Zofran) 4 mg IV Q8H PRN PRN Reason: Nausea And Vomiting Oxycodone/Acetaminophen (Percocet 5/325) 1 tab PO Q6H PRN PRN Reason: Pain, Moderate (4-6) Sodium Chloride (Sodium Chloride Flush Syringe 10 Ml) 10 ml IV BID [facility] Last Admin: 12/10/17 21:27 Dose: 10 ml Sodium Chloride (Sodium Chloride Flush Syringe 10 Ml) 10 ml IV PRN PRN PRN Reason: LINE FLUSH Review of Systems - Constitutional no fever, no chills - Cardiovascular no chest pain, no palpitations, no rapid/irregular heart beat, no lightheadedness - Respiratory no shortness of breath - Gastrointestinal BRBPR (intermittent), no abdominal pain, no hematemesis, no coffee ground emesis , no melena - Genitourinary no hematuria - Muskuloskeletal no low back pain Exam Vital Signs Temp Pulse Resp BP Pulse Ox 99.6 F 69 32 H 165/93 100 12/09/17 09:33 12/09/17 09:33 12/09/17 09:33 12/09/17 09:33 12/09/17 09:33 - General physical appearance Positive: no distress, no pain - Eyes Positive: normal occular movement - Respiratory Positive: normal expansion, normal respiratory effort - Cardiovascular Rhythm: regular - Abdomen Abdomen: Present: soft. Absent: tender - Rectum Rectum: no tenderness, no bleeding, other ( small external hemorrhoid at left anterolat position. ) - Neurologic Neurologic: alert and oriented to time, place and person, motor strength and sensation are grossly intact - Psychiatric Psychiatric: appropriate mood/affect, intact judgment & insight Results - Labs 12/10/17 09:36 12/09/17 10:08 Abnormal lab results 12/09/17 12/10/17 12/10/17 Range/Units 12:25 05:38 09:36 Hgb 7.2 L (11.8-15.2) gm/dl Hct 24.9 L (35.5-45.6) % MCV 58 L (84-94) fl MCH 17 L (28-32) pg MCHC 29 L (32-34) % RDW 32.8 H (13.2-15.2) % Plt Count 134 L (140-440) K/mm3 Iron 12 L (49-181) ug/dL Crossmatch See Detail Diabetes panel 12/10/17 Range/Units 05:38 Hemoglobin A1c < 4.2 (4-6) % Assessment and Plan - Patient Problems (1) Lower GI bleed Current Visit: Yes Status: Acute Plan to address problem: Pt is stable. No signs of active bleed from the hemorrhoids at this time. It is reasonable to consider hemorrhoidectomy based on the history. Would prefer to do this as an out-pt to give him time to stop smoking and to decrease risk of infection. Unfortunately, as patient does not have insurance, this is not possible. Will plan for EUA and hemorrhoidectomy as an in-pt. Will talk to OR switch inspector on Wednesday. Also discussed with patient the importance of good hydration, increased fiber in the diet, as well as better bowel habits. Time=45min
[2017-12-11 05:54] LABS: Hematocrit 23.4 % (35.5-45.6); Hemoglobin 6.9 gm/dl (11.8-15.2); Mean Corpuscular HGB Conc 29 % (32-34); Red Blood Count 4.12 M/mm3 (3.65-5.03)
[2017-12-11 06:06] LABS: BUN/Creatinine Ratio 11; Blood Urea Nitrogen 8 mg/dL (9-20); Calcium 8.3 mg/dL (8.4-10.2); Hemolysis Index 2
[2017-12-11 06:08] LABS: Alanine Aminotransferase 6 units/L (7-56); Albumin 3.4 g/dL (3.9-5); BUN/Creatinine Ratio 13; Blood Urea Nitrogen 8 mg/dL (9-20); Calcium 8.3 mg/dL (8.4-10.2); Hemolysis Index 2
[2017-12-11 06:12] LABS: Mean Corpuscular Hemoglobin 17 pg (28-32); Mean Corpuscular Volume 57 fl (84-94); Platelet Count 128 K/mm3 (140-440); Red Cell Distribution Width 32.5 % (13.2-15.2)
[2017-12-11 08:36] LABS: Anisocytosis 2+; Basophils % (Manual) 0 % (0.0-1.8); Total Cells Counted 100
[2017-12-11 08:37] LABS: Hypochromasia 3+; Ovalocytes Few; Platelet Estimate Consistent w Auto; Schistocytes Rare; Target Cells Few; Tear Drop Cells Few
[2017-12-11] MEDS: PEPCID IV SCH ×2 (10:45→21:35)
[2017-12-11] MEDS: SODIUM CHLORIDE FLUSH SYRINGE 10 ML IV SCH ×2 (10:45→21:35)
--- NOTE | 2017-12-11 11:42 | Gastroenterology Progress Note ---
Assessment and Plan 1. Hematochezia/bleeding hemorrhoids 2. Iron deficiency anemia -surgery following, noted plans for possible hemorrhoidectomy on Wednesday. will sign off, please call as needed or with questions. Subjective Date of service: 12/11/17 Principal diagnosis: hematochezia, CHINEDU Interval history: pt seen and examined. reports some bleeding with bm's this morning. denies abd pain or new gi complaints at this time. Objective - Constitutional Vitals: Temp Pulse Resp BP Pulse Ox 98.5 F 50 L 18 145/83 100 12/11/17 08:00 12/11/17 10:00 12/11/17 07:57 12/11/17 07:57 12/11/17 07:57 General appearance: no acute distress - Respiratory Respiratory effort: normal Respiratory: bilateral: CTA - Cardiovascular Rhythm: regular Heart Sounds: Present: S1 & S2 - Gastrointestinal General gastrointestinal: Present: soft, non-tender, non-distended - Neurologic Neurological: alert and oriented x3 - Psychiatric Psychiatric: appropriate mood/affect - Labs CBC & Chem 7: 12/11/17 04:59 12/11/17 04:59 Labs: Laboratory Results - last 24 hr 12/11/17 12/11/17 12/11/17 04:59 04:59 04:59 WBC 4.5 RBC 4.12 Hgb 6.9 L Hct 23.4 L MCV 57 L MCH 17 L MCHC 29 L RDW 32.5 H Plt Count 128 L Add Manual Diff Complete Total Counted 100 Seg Neuts % (Manual) 57.0 Band Neutrophils % 0 Lymphocytes % (Manual) 35.0 Reactive Lymphs % (Man) 0 Monocytes % (Manual) 7.0 Eosinophils % (Manual) 1.0 Basophils % (Manual) 0 Metamyelocytes % 0 Myelocytes % 0 Promyelocytes % 0 Blast Cells % 0 Nucleated RBC % Not Reportable Seg Neutrophils # Man 2.6 Band Neutrophils # 0.0 Lymphocytes # (Manual) 1.6 Abs React Lymphs (Man) 0.0 Monocytes # (Manual) 0.3 Eosinophils # (Manual) 0.0 Basophils # (Manual) 0.0 Metamyelocytes # 0.0 Myelocytes # 0.0 Promyelocytes # 0.0 Blast Cells # 0.0 WBC Morphology Not Reportable Hypersegmented Neuts Not Reportable Hyposegmented Neuts Not Reportable Hypogranular Neuts Not Reportable Smudge Cells Not Reportable Toxic Granulation Not Reportable Toxic Vacuolation Not Reportable Dohle Bodies Not Reportable Pelger-Huet Anomaly Not Reportable Neeilma Rods Not Reportable Platelet Estimate Consistent w auto Clumped Platelets Not Reportable Plt Clumps, EDTA Not Reportable Large Platelets Not Reportable Giant Platelets Not Reportable Platelet Satelliting Not Reportable Plt Morphology Comment Not Reportable RBC Morphology Not Reportable Dimorphic RBCs Not Reportable Polychromasia Not Reportable Hypochromasia 3+ Poikilocytosis Not Reportable Anisocytosis 2+ Microcytosis 2+ Macrocytosis Not Reportable Spherocytes Not Reportable Pappenheimer Bodies Not Reportable Sickle Cells Not Reportable Target Cells Few Tear Drop Cells Few Ovalocytes Few Helmet Cells Not Reportable [place] Bodies Not Reportable [place] Rings Not Reportable [place] Cells Not Reportable Bite Cells Not Reportable Crenated Cell Not Reportable Elliptocytes Few Acanthocytes (Spur) Not Reportable Rouleaux Not Reportable Hemoglobin C Crystals Not Reportable Schistocytes Rare Malaria parasites Not Reportable Carlos Bodies Not Reportable Hem Pathologist Commnt No Sodium 139 140 Potassium 3.9 4.0 Chloride 106.2 106.7 Carbon Dioxide 22 23 Anion Gap 15 14 BUN 8 L 8 L Creatinine 0.6 L 0.7 L Estimated GFR > 60 > 60 BUN/Creatinine Ratio 13 11 Glucose 96 97 Calcium 8.3 L 8.3 L Total Bilirubin 0.70 AST 14 ALT 6 L Alkaline Phosphatase 84 Total Protein 6.9 Albumin 3.4 L Albumin/Globulin Ratio 1.0
--- NOTE | 2017-12-11 12:55 | Progress Note ---
Subjective Date of service: 12/11/17 Principal diagnosis: hematochezia, CHINEDU Interval history: Mr Mercedes is a 47 y/o AA male admitted after a fall at work. Apparently some boxes fell on him. Xrays were negative for fractures, however it was incidentally found that the patient was anemic at 6.0/21.8. Mr Mercedes has been severely anemic over the past 2 years and has underwent EGDs and colonoscopies. He is noted to have an MCV of 52. He does report rectal bleeding intermittently since Aug 2016. No abdominal pain. States he had hemorrhoidal banding x 2. . He reports he continues to have intermittent rectal bleeding, but apparently has been noncompliant with GI follow-up. 12/10 patient is awake and alert, no apparent distress, heart and labs reviewed, GI consult note reviewed and appreciated Presently complains of headache left knee pain and left mid back pain since the work related injury He denies any fever or chills Denies any chest pain or shortness of breath Denies any abdominal pain nausea vomiting or diarrhea 12/11 A&O, NAD, continues to have intermittent rectal bleeding, denies rectal pain , lab results reviewed, GI and general surgery note reviewed and appreciated Assessment and plan: Severe microcytic anemia: Status post 2 units of PRBC transfusion. Post transfusion Hb is 7.2 >> 6.9 We will transfuse 1 unit of PRBC Recheck hemoglobin in a.m. Intermittent rectal bleed: Secondary to hemorrhoids Status post banding of the hemorrhoids 2 GI consult note reviewed and appreciated Gen. surgery note reviewed and appreciated He'll be scheduled for surgery per surgery recommendations Objective - Constitutional Vitals: Vital Signs - 12hr 12/11/17 12/11/17 12/11/17 04:49 07:57 08:00 Temperature 98.5 F 98.5 F Pulse Rate 63 Respiratory 18 18 Rate Blood Pressure 133/76 145/83 O2 Sat by Pulse 100 Oximetry 12/11/17 10:00 Temperature Pulse Rate 50 L Respiratory Rate Blood Pressure O2 Sat by Pulse Oximetry General appearance: Present: no acute distress - EENT Eyes: PERRL, EOM intact ENT: hearing intact, clear oral mucosa, no thrush - Neck Neck: supple, normal ROM, no masses or JVD - Respiratory Respiratory effort: normal Respiratory: bilateral: CTA - Cardiovascular Rhythm: regular Heart Sounds: Present: S1 & S2 Extremities: No edema - Gastrointestinal General gastrointestinal: Present: soft, non-tender. Absent: hepatomegaly, splenomegaly Rectal Exam: deferred - Genitourinary Male genitourinary: deferred - Integumentary Integumentary: clear - Musculoskeletal Musculoskeletal: strength equal bilaterally - Neurologic Neurologic: no focal deficits, moves all extremities - Psychiatric Psychiatric: appropriate mood/affect - Labs CBC & Chem 7: 12/11/17 04:59 12/11/17 04:59 Labs: Abnormal lab results 12/09/17 12/11/17 12/11/17 Range/Units 12:25 04:59 04:59 Hgb 6.9 L (11.8-15.2) gm/dl Hct 23.4 L (35.5-45.6) % MCV 57 L (84-94) fl MCH 17 L (28-32) pg MCHC 29 L (32-34) % RDW 32.5 H (13.2-15.2) % Plt Count 128 L (140-440) K/mm3 BUN 8 L (9-20) mg/dL Creatinine 0.6 L (0.8-1.5) mg/dL Calcium 8.3 L (8.4-10.2) mg/dL ALT 6 L (7-56) units/L Albumin 3.4 L (3.9-5) g/dL Crossmatch See Detail 12/11/17 Range/Units 04:59 Hgb (11.8-15.2) gm/dl Hct (35.5-45.6) % MCV (84-94) fl MCH (28-32) pg MCHC (32-34) % RDW (13.2-15.2) % Plt Count (140-440) K/mm3 BUN 8 L (9-20) mg/dL Creatinine 0.7 L (0.8-1.5) mg/dL Calcium 8.3 L (8.4-10.2) mg/dL ALT (7-56) units/L Albumin (3.9-5) g/dL Crossmatch
[2017-12-11] MEDS ORDERED: NACL 0.9% 500 ML 500 ML IV ONE (14:00)
[2017-12-11 20:45] LABS: Hematocrit 25.4 % (35.5-45.6); Hemoglobin 7.4 gm/dl (11.8-15.2)
[2017-12-11] MEDS: PERCOCET 5/325 PO PRN (21:41)
[2017-12-11] MEDS: NACL 0.9% 1000 ML 1,000 ML IV SCH (21:42)
[2017-12-12 06:37] LABS: Mean Corpuscular HGB Conc 29 % (32-34); Red Blood Count 4.29 M/mm3 (3.65-5.03)
[2017-12-12 06:43] LABS: Hematocrit 25.3 % (35.5-45.6); Hemoglobin 7.4 gm/dl (11.8-15.2); Mean Corpuscular Hemoglobin 17 pg (28-32); Mean Corpuscular Volume 59 fl (84-94)
[2017-12-12 06:44] LABS: Platelet Count 101 K/mm3 (140-440); Red Cell Distribution Width 35.9 % (13.2-15.2)
[2017-12-12] MEDS: PEPCID IV SCH ×2 (11:00→22:09)
[2017-12-12] MEDS: SODIUM CHLORIDE FLUSH SYRINGE 10 ML IV SCH ×2 (11:00→22:10)
--- NOTE | 2017-12-12 13:48 | Progress Note ---
Subjective Date of service: 12/12/17 Principal diagnosis: hematochezia, CHINEDU Interval history: HPI Mr Mercedes is a 47 y/o AA male admitted after a fall at work. Apparently some boxes fell on him. Xrays were negative for fractures, however it was incidentally found that the patient was anemic at 6.0/21.8. Mr Mercedes has been severely anemic over the past 2 years and has underwent EGDs and colonoscopies. He is noted to have an MCV of 52. He does report rectal bleeding intermittently since Aug 2016. No abdominal pain. States he had hemorrhoidal banding x 2. . He reports he continues to have intermittent rectal bleeding, but apparently has been noncompliant with GI follow-up. 12/10 patient is awake and alert, no apparent distress, heart and labs reviewed, GI consult note reviewed and appreciated Presently complains of headache left knee pain and left mid back pain since the work related injury He denies any fever or chills Denies any chest pain or shortness of breath Denies any abdominal pain nausea vomiting or diarrhea 12/11 A&O, NAD, continues to have intermittent rectal bleeding, denies rectal pain , lab results reviewed, GI and general surgery note reviewed and appreciated 12/12 resting, no specific complaints except continues to have intermittent rectal bleed. Lab results reviewed ROS: 11 point review of systems is negative except as stated above in history of present illness Assessment and plan: Severe microcytic anemia: Status post 2 units of PRBC transfusion. Post transfusion Hb is 7.2 >> 6.9 > 7.4 H/H stable Intermittent rectal bleed: Secondary to hemorrhoids Status post banding of the hemorrhoids 2 GI consult note reviewed and appreciated Gen. surgery note reviewed and appreciated He'll be scheduled for surgery per surgery recommendations, possibly tomorrow Objective Objective - Constitutional Vitals: Vital Signs - 12hr 12/12/17 12/12/17 12/12/17 04:19 05:10 07:36 Temperature 98.9 F 98.3 F Pulse Rate 50 L 45 L Respiratory 18 20 Rate Blood Pressure 149/82 155/74 Blood Pressure 149/82 [Left] O2 Sat by Pulse 100 100 Oximetry 12/12/17 12/12/17 12/12/17 07:37 10:00 11:57 Temperature 98.2 F Pulse Rate 47 L 51 L 45 L Respiratory 18 Rate Blood Pressure Blood Pressure [Left] O2 Sat by Pulse 100 100 Oximetry 12/12/17 12:00 Temperature 98.2 F Pulse Rate 52 L Respiratory 18 Rate Blood Pressure Blood Pressure 152/90 [Left] O2 Sat by Pulse Oximetry General appearance: Present: no acute distress - EENT Eyes: PERRL, EOM intact ENT: hearing intact, clear oral mucosa - Neck Neck: supple, normal ROM - Respiratory Respiratory effort: normal Respiratory: bilateral: CTA - Cardiovascular Rhythm: regular Heart Sounds: Present: S1 & S2 Extremities: No edema - Gastrointestinal General gastrointestinal: Present: soft, non-tender - Integumentary Integumentary: clear - Musculoskeletal Musculoskeletal: strength equal bilaterally - Neurologic Neurologic: no focal deficits - Psychiatric Psychiatric: appropriate mood/affect - Labs CBC & Chem 7: 12/12/17 05:20 12/11/17 04:59 Labs: Abnormal lab results 12/09/17 12/11/17 12/12/17 Range/Units 12:25 20:17 05:20 Hgb 7.4 L 7.4 L (11.8-15.2) gm/dl Hct 25.4 L 25.3 L (35.5-45.6) % MCV 59 L (84-94) fl MCH 17 L (28-32) pg MCHC 29 L (32-34) % RDW 35.9 H (13.2-15.2) % Plt Count 101 L (140-440) K/mm3 Crossmatch See Detail
--- NOTE | 2017-12-12 15:45 | Progress Note ---
Assessment and Plan - Patient Problems (1) Lower GI bleed Current Visit: Yes Status: Acute Plan to address problem: Pt is stable. Having some mild bleeding by patient report. Will proceed with surgery tomorrow. Has been placed on the add-on list for tomorrow. Procedure, risks, benefits, alternatives discussed. Discussed the importance of post-op care that he will have to do. Pt wants to proceed. Will fill out consent tomorrow. NPO after MN Surgical prep Suppository in AM before surgery Time=15min Subjective Date of service: 12/12/17 Patient Reports: Positive: no new complaints, blood in stool (mild) Objective Vital Signs - 12hr 12/12/17 12/12/17 12/12/17 04:19 05:10 07:36 Temperature 98.9 F 98.3 F Pulse Rate 50 L 45 L Respiratory 18 20 Rate Blood Pressure 149/82 155/74 Blood Pressure 149/82 [Left] O2 Sat by Pulse 100 100 Oximetry 12/12/17 12/12/17 12/12/17 07:37 10:00 11:57 Temperature 98.2 F Pulse Rate 47 L 51 L 45 L Respiratory 18 Rate Blood Pressure Blood Pressure [Left] O2 Sat by Pulse 100 100 Oximetry 12/12/17 12:00 Temperature 98.2 F Pulse Rate 52 L Respiratory 18 Rate Blood Pressure Blood Pressure 152/90 [Left] O2 Sat by Pulse Oximetry - General physical appearance no distress, no pain - Respiratory normal expansion, normal respiratory effort - Psychiatric oriented to time, oriented to person, oriented to place, speech is normal, memory intact - Labs 12/12/17 05:20 12/11/17 04:59
[2017-12-13] MEDS ORDERED: ZOSYN/NS 4.5GM/100ML 4.5 GM/100 ML VIAL IV ONE (06:00)
[2017-12-13] MEDS ORDERED: DULCOLAX PR ONE (08:00)
[2017-12-13] MEDS: MORPHINE IV PRN (08:35)
[2017-12-13 08:56] LABS: Hematocrit 26.4 % (35.5-45.6); Hemoglobin 7.8 gm/dl (11.8-15.2)
[2017-12-13] MEDS: PEPCID IV SCH ×2 (09:02→21:01)
[2017-12-13] MEDS: SODIUM CHLORIDE FLUSH SYRINGE 10 ML IV SCH ×2 (09:02→21:01)
--- NOTE | 2017-12-13 09:46 | Anesthesia Consultation ---
Anesthesia Consult and Med Hx - Airway Anesthetic Teeth Evaluation: Poor ROM Head & Neck: Adequate Mental/Hyoid Distance: Adequate Mallampati Class: Class II Intubation Access Assessment: Good - Pulmonary Exam CTA: Yes - Cardiac Exam Cardiac Exam: RRR - Pre-Operative Health Status ASA Pre-Surgery Classification: ASA2 Proposed Anesthetic Plan: General - Pulmonary Hx Smoking: Yes (1/2PPD x 31 years) Hx Asthma: Yes Hx Respiratory Symptoms: Yes (MARTINEZ x 2 months) SOB: Yes (at times due to asthma -- uses rescue inhaler PRN -- last used one year ago) COPD: No Hx Pneumonia: No Hx Sleep Apnea: No - Cardiovascular System Hx Hypertension: No Hx Coronary Artery Disease: No Hx Heart Attack/AMI: No Hx Angina: No Hx Percutaneous Transluminal Coronary Angioplasty (PTCA): No Hx Cardia Arrhythmia: No Hx Pacemaker: No Hx Internal Defibrillator: No Hx Valvular Heart Disease: No Hx Heart Murmur: No Hx Peripheral Vascular Disease: No - Central Nervous System Hx Neuromuscular Disorder: No Hx Seizures: No CVA: No Hx Back Pain: Yes Hx Psychiatric Problems: No - Gastrointestinal Hx Ulcer: No Hx Gastroesophageal Reflux Disease: No - Endocrine Hx Renal Disease: No Hx End Stage Renal Disease: No Hx Cirrhosis: No Hx Liver Disease: No Hx Insulin Dependent Diabetes: No Hx Non-Insulin Dependent Diabetes: No Hx Thyroid Disease: No Hx Hypothyroidism: No Hx Hyperthyroidism: No - Hematic Hx Anemia: Yes (Hgb 7.9 after 4 units PRBC received 02/18/16) Hx Sickle Cell Disease: No - Other Systems Hx Alcohol Use: No Hx Substance Use: No Hx Cancer: No Hx Obesity: No
[2017-12-13] MEDS ORDERED: DILAUDID IV PRN (09:47)
[2017-12-13] MEDS ORDERED: SUBLIMAZE IV PRN (09:47)
--- NOTE | 2017-12-13 09:47 | Anesthesia Day of Surgery ---
Anesthesia Day of Surgery - Day of Surgery Patient Examined: Yes Patient H&P Reviewed: Yes Patient is NPO: Yes Beta Blockers: No Cardiac Clearance: No Pulmonary Clearance: No
[2017-12-13] MEDS ORDERED: DIPRIVAN 10 MG/ML IV ONE (09:48)
[2017-12-13] MEDS ORDERED: XYLOCAINE MPF 2% ONE (09:48)
[2017-12-13] MEDS ORDERED: ZEMURON IV ONE (09:49)
[2017-12-13] MEDS ORDERED: MARCAINE 0.5% 30 ML INFILTRATI ONE (09:52)
[2017-12-13] MEDS ORDERED: NUPERCAINAL ONE (09:52)
[2017-12-13] MEDS ORDERED: NUPERCAINAL PR ONE (09:58)
[2017-12-13] MEDS ORDERED: MARCAINE 0.5% INFILTRATI ONE (09:58)
[2017-12-13] MEDS ORDERED: NACL 0.9% IR ONE (09:58)
--- NOTE | 2017-12-13 10:17 | Progress Note ---
Assessment and Plan - Patient Problems (1) Lower GI bleed Current Visit: Yes Status: Acute Plan to address problem: Pt stable. Pt wishes to proceed. Procedure, risks, benefits, alternatives reviewed again. Consent obtained. Proceed to OR today. Explained about need for suppository. time=10min Subjective Date of service: 12/13/17 Patient Reports: Positive: no new complaints (still having some mild bleeding. No other issues. Ready for OR) Objective Vital Signs - 12hr 12/12/17 12/12/17 12/13/17 23:20 23:25 04:00 Temperature 98.9 F 98.8 F Pulse Rate 49 L 60 52 L Respiratory 16 18 18 Rate Blood Pressure 145/69 Blood Pressure 145/69 151/75 [Left] O2 Sat by Pulse 98 100 99 Oximetry 12/13/17 12/13/17 12/13/17 04:11 07:35 08:57 Temperature 97.3 F L 99.2 F Pulse Rate 51 L 47 L 44 L Respiratory 16 18 16 Rate Blood Pressure 151/75 156/82 158/87 Blood Pressure [Left] O2 Sat by Pulse 100 100 99 Oximetry 12/13/17 09:28 Temperature 99.2 F Pulse Rate 52 L Respiratory 16 Rate Blood Pressure 158/87 Blood Pressure [Left] O2 Sat by Pulse 99 Oximetry - General physical appearance no distress, no pain - Eyes normal occular movement - Respiratory normal expansion, normal respiratory effort - Psychiatric oriented to time, oriented to person, oriented to place, speech is normal, memory intact - Labs 12/13/17 07:53 12/11/17 04:59
[2017-12-13] MEDS ORDERED: DECADRON ONE (10:43)
[2017-12-13] MEDS ORDERED: ZOFRAN ONE (10:43)
--- NOTE | 2017-12-13 11:27 | Post Operative Note ---
Date of procedure: 12/13/17 (Dictation#[id number]) Pre-op diagnosis: hemorrhoidal bleed Post-op diagnosis: same Findings: 3 large hemorrhoidal complexes. No proximal mass. Normal anoderm. Procedure: EUA; hemorrhoidectomy; left pudenal block Anesthesia: GETA Surgeon: PEREZ LEON Estimated blood loss: minimal Pathology: list (hemorrhoid complex) Specimen disposition: to lab Condition: stable Disposition: PACU
--- NOTE | 2017-12-13 19:11 | Progress Note ---
Assessment and Plan Mr Mercedes is a 47 y/o AA male admitted after a fall at work. Apparently some boxes fell on him. Xrays were negative for fractures, however it was incidentally found that the patient was anemic at 6.0/21.8. Mr Mercedes has been severely anemic over the past 2 years and has underwent EGDs and colonoscopies. He is noted to have an MCV of 52. He does report rectal bleeding intermittently since Aug 2016. No abdominal pain. States he had hemorrhoidal banding x 2. . He reports he continues to have intermittent rectal bleeding, but apparently has been noncompliant with GI follow-up. 12/10 patient is awake and alert, no apparent distress, heart and labs reviewed, GI consult note reviewed and appreciated Presently complains of headache left knee pain and left mid back pain since the work related injury He denies any fever or chills Denies any chest pain or shortness of breath Denies any abdominal pain nausea vomiting or diarrhea 12/11 A&O, NAD, continues to have intermittent rectal bleeding, denies rectal pain , lab results reviewed, GI and general surgery note reviewed and appreciated 12/12 resting, no specific complaints except continues to have intermittent rectal bleed. Lab results reviewed 12/13: Went for hemorroidectomy today Assessment and plan: - Severe microcytic anemia: Status post 2 units of PRBC transfusion. Post transfusion Hb is 7.2 >> 6.9 > 7.4 H/H stable - Intermittent rectal bleed: Secondary to hemorrhoids Status post banding of the hemorrhoids 2 s/p Hemorrhoidectomy GI consult note reviewed and appreciated Gen. surgery note reviewed and appreciated Subjective Date of service: 12/13/17 Principal diagnosis: hematochezia, CHINEDU Interval history: Pt had surgery today for hemorrhoidectomy Objective - Constitutional Vitals: Vital Signs - 12hr 12/13/17 12/13/17 12/13/17 07:35 08:57 09:28 Temperature 97.3 F L 99.2 F 99.2 F Pulse Rate 47 L 44 L 52 L Pulse Rate [ Apical] Respiratory 18 16 16 Rate Blood Pressure 156/82 158/87 158/87 Blood Pressure [Left] O2 Sat by Pulse 100 99 99 Oximetry 12/13/17 12/13/17 12/13/17 10:00 11:00 11:05 Temperature 97.7 F Pulse Rate 58 L 88 82 Pulse Rate [ 58 L Apical] Respiratory 18 23 17 Rate Blood Pressure 128/79 136/85 Blood Pressure [Left] O2 Sat by Pulse 98 99 98 Oximetry 12/13/17 12/13/17 12/13/17 11:10 11:15 11:30 Temperature Pulse Rate 84 73 61 Pulse Rate [ Apical] Respiratory 17 13 14 Rate Blood Pressure 136/90 145/92 146/89 Blood Pressure [Left] O2 Sat by Pulse 98 98 99 Oximetry 12/13/17 12/13/17 12/13/17 11:45 12:10 12:23 Temperature 97.7 F 97.5 F L 99.5 F Pulse Rate 60 67 67 Pulse Rate [ Apical] Respiratory 13 16 Rate Blood Pressure 148/93 169/103 Blood Pressure 169/103 [Left] O2 Sat by Pulse 99 100 Oximetry 12/13/17 16:12 Temperature 97.8 F Pulse Rate 63 Pulse Rate [ Apical] Respiratory 18 Rate Blood Pressure 139/81 Blood Pressure [Left] O2 Sat by Pulse 100 Oximetry General appearance: Present: no acute distress, well-nourished - EENT Eyes: PERRL, EOM intact Ears: bilateral: normal - Neck Neck: supple, normal ROM - Respiratory Respiratory effort: normal Respiratory: bilateral: CTA - Cardiovascular Rhythm: regular Heart Sounds: Present: S1 & S2. Absent: gallop, rub Extremities: pulses intact, No edema, normal color, Full ROM - Gastrointestinal General gastrointestinal: Present: soft, non-tender, non-distended, normal bowel sounds - Genitourinary Male genitourinary: normal - Integumentary Integumentary: clear, warm, dry - Musculoskeletal Musculoskeletal: 1, strength equal bilaterally - Neurologic Neurologic: moves all extremities - Psychiatric Psychiatric: memory intact, appropriate mood/affect, intact judgment & insight - Labs CBC & Chem 7: 12/13/17 07:53 12/11/17 04:59 Labs: Abnormal lab results 12/13/17 Range/Units 07:53 Hgb 7.8 L (11.8-15.2) gm/dl Hct 26.4 L (35.5-45.6) %
[2017-12-13] MEDS: MILK OF MAGNESIA PO SCH (20:12)
--- NOTE | 2017-12-13 21:35 | Operative Report ---
PREOPERATIVE DIAGNOSIS: Lower gastrointestinal bleed, presumed to be hemorrhoidal. POSTOPERATIVE DIAGNOSIS: Lower gastrointestinal bleed, presumed to be hemorrhoidal. PROCEDURE: 1. Surgical diagnostic examination anorectal. 2. Hemorrhoidectomy, one column. 3. Left pudendal nerve block. The procedure will be injection of anesthetic agent into the pudendal nerve. ATTENDING PHYSICIAN: Eliz Gregory MD ANESTHESIA: General. ESTIMATED BLOOD LOSS: 10 mL. FLUIDS: 450 mL. FINDINGS: Three columns of significant disease of the hemorrhoidal vessels, the largest appeared to be the column at the 3 o'clock position. SPECIMEN: Hemorrhoidal column. DRAINS: None. COMPLICATIONS: There were no complications. All counts were correct at the end of the case. DISPOSITION: Stable, transferred to Recovery Room. INDICATIONS: This is a 47-year-old male who has had a chronic problem of intermittent lower GI bleed such that it has left him anemic. He has had multiple bandings performed that have not resolved the problem. Recommendation was given to General Surgery consult. The patient is estimated need for hemorrhoidectomy. Procedure, risks, benefits were explained to the patient. Risks included but were not limited to infection, bleeding, pain, injury to surrounding structures, possible stenosis, possible need for further surgeries in the future. As a precaution, we will do one column at a time to minimize his long-term risk of stenosis. The patient understood and agreed. Consent was obtained. OPERATIVE NOTE: The patient was brought to the operating room and placed on the table in supine position. After adequate general anesthesia was established, the patient was placed in a prone jackknife position. Antibiotics have been administered. SCDs were in place. We began with sterile prep and drape. Time-out was called. Examination under anesthesia was performed first to evaluate the entire anal canal thoroughly. The patient was identified to have multiple columns of hemorrhoidal disease. All three major columns were involved. I found in looking at all of them multiple times that the column at the 3 o'clock position, which would be the patient's left lateral location, was probably the worst of the three and therefore, we will there start with the excision. Anal retractor was inserted. Hemorrhoidal complex was grabbed with a clamp. A hemostat was placed at the anodermal line. Initial triangular incision was made. A clamp was placed at the base where the incision had been started using the LigaSure device, I excised the hemorrhoidal complex. I used a 3-[address] a running stitch around the clam. Clamp was removed. Suture was cinched down. I then closed the anoderm over it using the same stitch and then tied the two together. There was a point of bleeding just to the left of the incision near the pectinate line. This was included in the closure and that we have hemostasis. While I was holding pressure in that area to assist with hemostasis, I did a left pudendal nerve injection block identifying the ischial tuberosity and spine. Just addition to that area, I inserted the needle, which had 1% lidocaine and 0.5% Marcaine 50:50 mix, I aspirated. There was no bleeding. I injected 10 mL into that area. There was no bleeding at the end. We then reexamined the wound. There was no active bleeding. Packing was placed. The patient tolerated the procedure well. There were no complications. All counts were correct at the end of the case. JOB# [id number] ELIZABETH/GARY
[2017-12-13] MEDS: PERCOCET 5/325 PO PRN (23:57)
[2017-12-14 08:50] LABS: Mean Corpuscular HGB Conc 29 % (32-34); Red Blood Count 4.32 M/mm3 (3.65-5.03)
[2017-12-14 08:58] LABS: Hematocrit 25.9 % (35.5-45.6); Hemoglobin 7.5 gm/dl (11.8-15.2); Mean Corpuscular Hemoglobin 17 pg (28-32); Mean Corpuscular Volume 60 fl (84-94); Red Cell Distribution Width 35.3 % (13.2-15.2)
[2017-12-14 09:31] LABS: Alanine Aminotransferase 9 units/L (7-56); Albumin 3.9 g/dL (3.9-5); BUN/Creatinine Ratio 23; Blood Urea Nitrogen 14 mg/dL (9-20); Calcium 9.2 mg/dL (8.4-10.2); Hemolysis Index 0
[2017-12-14] MEDS: MILK OF MAGNESIA PO SCH (09:31)
[2017-12-14] MEDS: PEPCID IV SCH (09:31)
[2017-12-14] MEDS: SODIUM CHLORIDE FLUSH SYRINGE 10 ML IV SCH (09:31)
[2017-12-14 10:50] LABS: Anisocytosis 3+; Basophils % (Manual) 0 % (0.0-1.8); Eosinophils % (Manual) 0 % (0.0-4.3); Hypochromasia 3+; Poikilocytosis 1+; Total Cells Counted 100
[2017-12-14 10:51] LABS: Acanthocytes Few; Platelet Estimate Cons; Target Cells Few; Tear Drop Cells Few
[2017-12-14 10:52] LABS: Platelet Count 107 K/mm3 (140-440)
--- NOTE | 2017-12-14 11:42 | Progress Note ---
Assessment and Plan Assessment and plan: Mr Mercdees is a 47 y/o AA male admitted after a fall at work. Apparently some boxes fell on him. Xrays were negative for fractures, however it was incidentally found that the patient was anemic at 6.0/21.8. Mr Mercedes has been severely anemic over the past 2 years and has underwent EGDs and colonoscopies. He is noted to have an MCV of 52. He does report rectal bleeding intermittently since Aug 2016. No abdominal pain. States he had hemorrhoidal banding x 2. . He reports he continues to have intermittent rectal bleeding, but apparently has been noncompliant with GI follow-up. 12/10 patient is awake and alert, no apparent distress, heart and labs reviewed, GI consult note reviewed and appreciated Presently complains of headache left knee pain and left mid back pain since the work related injury He denies any fever or chills Denies any chest pain or shortness of breath Denies any abdominal pain nausea vomiting or diarrhea 12/11 A&O, NAD, continues to have intermittent rectal bleeding, denies rectal pain , lab results reviewed, GI and general surgery note reviewed and appreciated 12/12 resting, no specific complaints except continues to have intermittent rectal bleed. Lab results reviewed 12/13: Went for hemorroidectomy today Assessment and plan: - Severe microcytic anemia: Status post 2 units of PRBC transfusion. Post transfusion Hb is 7.2 >> 6.9 > 7.4 H/H stable - Intermittent rectal bleed: Secondary to hemorrhoids Status post banding of the hemorrhoids 2 s/p Hemorrhoidectomy GI consult note reviewed and appreciated Gen. surgery note reviewed and appreciated Hospitalist Physical - Constitutional Vitals: Temp Pulse Resp BP Pulse Ox 98.2 F 44 L 18 165/64 100 12/14/17 08:55 12/14/17 10:00 12/14/17 10:00 12/14/17 08:55 12/14/17 10:00 General appearance: Present: no acute distress, well-nourished Results - Labs CBC & Chem 7: 12/14/17 07:58 12/14/17 07:58 Labs: Laboratory Last Values WBC 11.2 K/mm3 (4.5-11.0) H 12/14/17 07:58 RBC 4.32 M/mm3 (3.65-5.03) 12/14/17 07:58 Hgb 7.5 gm/dl (11.8-15.2) L 12/14/17 07:58 Hct 25.9 % (35.5-45.6) L 12/14/17 07:58 MCV 60 fl (84-94) L 12/14/17 07:58 MCH 17 pg (28-32) L 12/14/17 07:58 MCHC 29 % (32-34) L 12/14/17 07:58 RDW 35.3 % (13.2-15.2) H 12/14/17 07:58 Plt Count 107 K/mm3 (140-440) L 12/14/17 07:58 Add Manual Diff Complete 12/14/17 07:58 Total Counted 100 12/14/17 07:58 Seg Neuts % (Manual) 92.0 % (40.0-70.0) H 12/14/17 07:58 Band Neutrophils % 0 % 12/14/17 07:58 Lymphocytes % (Manual) 6.0 % (13.4-35.0) L 12/14/17 07:58 Reactive Lymphs % (Man) 0 % 12/14/17 07:58 Monocytes % (Manual) 2.0 % (0.0-7.3) 12/14/17 07:58 Eosinophils % (Manual) 0 % (0.0-4.3) 12/14/17 07:58 Basophils % (Manual) 0 % (0.0-1.8) 12/14/17 07:58 Metamyelocytes % 0 % 12/14/17 07:58 Myelocytes % 0 % 12/14/17 07:58 Promyelocytes % 0 % 12/14/17 07:58 Blast Cells % 0 % 12/14/17 07:58 Nucleated RBC % Not Reportable 12/14/17 07:58 Seg Neutrophils # Man 10.3 K/mm3 (1.8-7.7) H 12/14/17 07:58 Band Neutrophils # 0.0 K/mm3 12/14/17 07:58 Lymphocytes # (Manual) 0.7 K/mm3 (1.2-5.4) L 12/14/17 07:58 Abs React Lymphs (Man) 0.0 K/mm3 12/14/17 07:58 Monocytes # (Manual) 0.2 K/mm3 (0.0-0.8) 12/14/17 07:58 Eosinophils # (Manual) 0.0 K/mm3 (0.0-0.4) 12/14/17 07:58 Basophils # (Manual) 0.0 K/mm3 (0.0-0.1) 12/14/17 07:58 Metamyelocytes # 0.0 K/mm3 12/14/17 07:58 Myelocytes # 0.0 K/mm3 12/14/17 07:58 Promyelocytes # 0.0 K/mm3 12/14/17 07:58 Blast Cells # 0.0 K/mm3 12/14/17 07:58 WBC Morphology Not Reportable 12/14/17 07:58 Hypersegmented Neuts Not Reportable 12/14/17 07:58 Hyposegmented Neuts Not Reportable 12/14/17 07:58 Hypogranular Neuts Not Reportable 12/14/17 07:58 Smudge Cells Not Reportable 12/14/17 07:58 Toxic Granulation Not Reportable 12/14/17 07:58 Toxic Vacuolation Not Reportable 12/14/17 07:58 Dohle Bodies Not Reportable 12/14/17 07:58 Pelger-Huet Anomaly Not Reportable 12/14/17 07:58 Neelima Rods Not Reportable 12/14/17 07:58 Platelet Estimate Cons 12/14/17 07:58 Clumped Platelets Not Reportable 12/14/17 07:58 Plt Clumps, EDTA Not Reportable 12/14/17 07:58 Large Platelets Not Reportable 12/14/17 07:58 Giant Platelets Not Reportable 12/14/17 07:58 Platelet Satelliting Not Reportable 12/14/17 07:58 Plt Morphology Comment Not Reportable 12/14/17 07:58 RBC Morphology Not Reportable 12/14/17 07:58 Dimorphic RBCs Not Reportable 12/14/17 07:58 Polychromasia Not Reportable 12/14/17 07:58 Hypochromasia 3+ 12/14/17 07:58 Poikilocytosis 1+ 12/14/17 07:58 Anisocytosis 3+ 12/14/17 07:58 Microcytosis 2+ 12/14/17 07:58 Macrocytosis Not Reportable 12/14/17 07:58 Spherocytes Not Reportable 12/14/17 07:58 Pappenheimer Bodies Not Reportable 12/14/17 07:58 Sickle Cells Not Reportable 12/14/17 07:58 Target Cells Few 12/14/17 07:58 Tear Drop Cells Few 12/14/17 07:58 Ovalocytes Not Reportable 12/14/17 07:58 Helmet Cells Not Reportable 12/14/17 07:58 [place] Bodies Not Reportable 12/14/17 07:58 [place] Rings Not Reportable 12/14/17 07:58 Pascale Cells Not Reportable 12/14/17 07:58 Bite Cells Not Reportable 12/14/17 07:58 Crenated Cell Not Reportable 12/14/17 07:58 Elliptocytes Not Reportable 12/14/17 07:58 Acanthocytes (Spur) Few 12/14/17 07:58 Rouleaux Not Reportable 12/14/17 07:58 Hemoglobin C Crystals Not Reportable 12/14/17 07:58 Schistocytes Not Reportable 12/14/17 07:58 Malaria parasites Not Reportable 12/14/17 07:58 Carlos Bodies Not Reportable 12/14/17 07:58 Hem Pathologist Commnt No 12/14/17 07:58 Sodium 140 mmol/L (137-145) 12/14/17 07:58 Potassium 4.5 mmol/L (3.6-5.0) 12/14/17 07:58 Chloride 105.0 mmol/L (98-107) 12/14/17 07:58 Carbon Dioxide 25 mmol/L (22-30) 12/14/17 07:58 Anion Gap 15 mmol/L 12/14/17 07:58 BUN 14 mg/dL (9-20) 12/14/17 07:58 Creatinine 0.6 mg/dL (0.8-1.5) L 12/14/17 07:58 Estimated GFR > 60 ml/min 12/14/17 07:58 BUN/Creatinine Ratio 23 % 12/14/17 07:58 Glucose 107 mg/dL (75-100) H 12/14/17 07:58 Hemoglobin A1c < 4.2 % (4-6) 12/10/17 05:38 Calcium 9.2 mg/dL (8.4-10.2) 12/14/17 07:58 Iron 12 ug/dL (49-181) L 12/10/17 05:38 TIBC 291 mcg/dL (250-450) 12/10/17 05:38 % Saturation 4.12 % 12/10/17 05:38 Transferrin 253 mg/dl (180-329) 12/10/17 05:38 Total Bilirubin 0.70 mg/dL (0.1-1.2) 12/14/17 07:58 AST 14 units/L (5-40) 12/14/17 07:58 ALT 9 units/L (7-56) 12/14/17 07:58 Alkaline Phosphatase 99 units/L (35-129) 12/14/17 07:58 Total Protein 7.5 g/dL (6.3-8.2) 12/14/17 07:58 Albumin 3.9 g/dL (3.9-5) 12/14/17 07:58 Albumin/Globulin Ratio 1.1 % 12/14/17 07:58 Vitamin B12 374.4 pg/mL (211-911) 12/10/17 05:38 RBC Folic Acid 658 ng/mL (>280) 12/10/17 05:38 Urine Opiates Screen Presumptive negative 12/09/17 12:21 Urine Methadone Screen Presumptive negative 12/09/17 12:21 Ur Barbiturates Screen Presumptive negative 12/09/17 12:21 Ur Phencyclidine Scrn Presumptive negative 12/09/17 12:21 Ur Amphetamines Screen Presumptive negative 12/09/17 12:21 U Benzodiazepines Scrn Presumptive negative 12/09/17 12:21 Urine Cocaine Screen Presumptive negative 12/09/17 12:21 U Marijuana (THC) Screen Presumptive negative 12/09/17 12:21 Drugs of Abuse Note Disclamer 12/09/17 12:21 Blood Type O POSITIVE 12/09/17 12:25 Antibody Screen Negative 12/09/17 12:25 Crossmatch See Detail 12/09/17 12:25
[2017-12-14 16:31] VITALS: BP 173/76
--- NOTE | 2017-12-14 18:55 | Progress Note ---
Assessment and Plan - Patient Problems (1) Lower GI bleed Status: Acute Plan to address problem: s/p EUA and hemorrhoidectomy - 12/13/17 - POD#1. Pt doing very well. Explained findings and procedure. Rec: 1) d/c home 2) must increase fiber in diet 3) stay well hydrated. 4) no straining or prolonged sitting on toilet. 5) f/u in 2 week. Business card given. Subjective Date of service: 12/14/17 Patient Reports: Positive: feels better, pain is less, tolerating a regular diet , bowel movement Objective Vital Signs - 12hr 12/14/17 12/14/17 12/14/17 07:33 08:55 10:00 Temperature 98.2 F 98.2 F Pulse Rate 44 L 46 L 45 L Pulse Rate [ 44 L From Monitor] Respiratory 18 Rate Blood Pressure 165/64 Blood Pressure 165/64 [Left] O2 Sat by Pulse 100 100 100 Oximetry 12/14/17 12/14/17 12/14/17 11:48 11:52 15:43 Temperature 98.2 F 97.8 F 98.2 F Pulse Rate 43 L 54 L 45 L Pulse Rate [ From Monitor] Respiratory Rate Blood Pressure 159/75 132/80 173/76 Blood Pressure [Left] O2 Sat by Pulse 99 100 99 Oximetry - General physical appearance no distress, no pain - Respiratory normal expansion, normal respiratory effort - Labs 12/14/17 07:58 12/14/17 07:58 Diabetes panel 12/14/17 Range/Units 07:58 Sodium 140 (137-145) mmol/L Potassium 4.5 (3.6-5.0) mmol/L Chloride 105.0 (98-107) mmol/L Carbon Dioxide 25 (22-30) mmol/L BUN 14 (9-20) mg/dL Creatinine 0.6 L (0.8-1.5) mg/dL Glucose 107 H (75-100) mg/dL Calcium 9.2 (8.4-10.2) mg/dL AST 14 (5-40) units/L ALT 9 (7-56) units/L Alkaline Phosphatase 99 (35-129) units/L Total Protein 7.5 (6.3-8.2) g/dL Albumin 3.9 (3.9-5) g/dL Calcium panel 12/14/17 Range/Units 07:58 Calcium 9.2 (8.4-10.2) mg/dL Albumin 3.9 (3.9-5) g/dL Pituitary panel 12/14/17 Range/Units 07:58 Sodium 140 (137-145) mmol/L Potassium 4.5 (3.6-5.0) mmol/L Chloride 105.0 (98-107) mmol/L Carbon Dioxide 25 (22-30) mmol/L BUN 14 (9-20) mg/dL Creatinine 0.6 L (0.8-1.5) mg/dL Glucose 107 H (75-100) mg/dL Calcium 9.2 (8.4-10.2) mg/dL Adrenal panel 12/14/17 Range/Units 07:58 Sodium 140 (137-145) mmol/L Potassium 4.5 (3.6-5.0) mmol/L Chloride 105.0 (98-107) mmol/L Carbon Dioxide 25 (22-30) mmol/L BUN 14 (9-20) mg/dL Creatinine 0.6 L (0.8-1.5) mg/dL Glucose 107 H (75-100) mg/dL Calcium 9.2 (8.4-10.2) mg/dL Total Bilirubin 0.70 (0.1-1.2) mg/dL AST 14 (5-40) units/L ALT 9 (7-56) units/L Alkaline Phosphatase 99 (35-129) units/L Total Protein 7.5 (6.3-8.2) g/dL Albumin 3.9 (3.9-5) g/dL
[2017-12-14] MEDS ORDERED: PEPCID PO SCH (22:00)
== END 2017-12-14 16:31 | disposition home or self-care (01) | DRG 348 ==
LOC: ED 09:12 → 4A 12:19
PROVIDERS: ADMIT Internal Medicine; ATTEND Internal Medicine
PROC: 30233N1 Transfusion of Nonautologous Red Blood Cells into Peripheral Vein, Percutaneous Approach (ICD-10-PCS; 2017-12-10)
PROC: 06BY0ZC Excision of Hemorrhoidal Plexus, Open Approach (ICD-10-PCS; principal; 2017-12-13)
PROC: 3E0T3BZ Introduction of Anesthetic Agent into Peripheral Nerves and Plexi, Percutaneous Approach (ICD-10-PCS; 2017-12-13)
DX: K64.9 Unspecified hemorrhoids (principal); E44.1 Mild protein-calorie malnutrition; K92.2 Gastrointestinal hemorrhage, unspecified; D62 Acute posthemorrhagic anemia; D64.9 Anemia, unspecified; J45.909 Unspecified asthma, uncomplicated; W18.39XA Other fall on same level, initial encounter; G43.909 Migraine, unspecified, not intractable, without status migrainosus; F17.200 Nicotine dependence, unspecified, uncomplicated; Z68.22 Body mass index [BMI] 22.0-22.9, adult; Y93.89 Activity, other specified; Y92.89 Other specified places as the place of occurrence of the external cause; Y99.8 Other external cause status
CPT/HCPCS: 36415; 72040; 72072; 72132; 80048; 80053; 80307; 82607; 82747; 83036; 83550; 85007; 85014; 85018; 85025; 85027; 86850; 86900; 86901; 86920; 88304; 99291; 99406; J1100; J1170; J2270; J2405; J2543; J2704; J3010; J7030; P9016; Q9967